=== PATIENT | female | born 1980 | race Caucasian/White ===

== ENCOUNTER 2021-10-01 15:55 | Inpatient (IN) | payer OTHER, SELFPAY ==
[2021-10-01] VITALS (9 sets, daily range): BP systolic 114–125; BP diastolic 73–89; PULSE 59–75; TEMP 36.4; BMI 26.7
--- OUTSIDE RECORDS SUMMARY | 2021-10-01 16:06 | XMS_ITS | Encounter Summary ---
:1980 Author Care Team Providers Name Role Phone Kyrie Miranda MD Primary Care Provider [phone] Reason for Visit None recorded. Assessment and Plan 1. IVF - in-vitro fertilization pregnan cy ? non-stress test Discussion Note: None recorded.Patient educational handouts: No information available. Plan of Care Reminders Provider Appointments None recorded. ? ? Lab None recorded. ? ? Referral None recorded. ? ? Procedures None recorded. ? ? Surgeries None recorded. ? ? Imaging Non-stress Test 09/27/2021 [place] Medications Name Start Date ? ? Asprin Ec Low Dose 81 mg tablet,delayed release ? Take 1 tablet every day by oral route. Extra Strength Pain Relief 500 mg capsule ? folic acid 400 mcg tablet ? Take 1 tablet every day by oral route. levothyroxine 75 mcg tablet ? Take 1 tablet every day by oral route. Vitamin 27 mg iron-0.8 mg tablet ? take 1 tablet by oral route every day Vitamin C 1,000 mg tablet ? Take 1 tablet every day by oral route. Medications Administered None recorded. Vitals None recorded. Results Lab Results None recorded. Allergies Code Code System Name Reaction Severity Onset NKDA ? ? ? Problems Name Status Onset Date Source ? Uterine Fibroids Affecting Active 03/11/2021 ? Subchorionic Hematoma Active 03/11/2021 ? IVF - In-vitro Fertilization Active ? Anxiety in Active 03/11/2021 ? Active 03/29/2021 ? Elderly Primigravida Active ?
--- OUTSIDE RECORDS SUMMARY | 2021-10-01 16:06 | XMS_ITS | Encounter Summary ---
:1980 Author Care Team Providers Name Role Phone Kyrie Miranda MD Primary Care Provider [phone] Reason for Visit OB visit Assessment and Plan 1. IVF - in-vitro fertilization pregnan cy 2. Elderly primigravida 3. Candidiasis of vulva ? Diflucan 150 mg tablet Discussion Note: None recorded.Patient educational handouts: No information available. Plan of Care Reminders Provider Appointments None recorded. ? ? Lab None recorded. ? ? Referral None recorded. ? ? Procedures None recorded. ? ? Surgeries None recorded. ? ? Imaging None recorded. ? ? Medications Name Start Date ? ? Asprin [...] oral route. Medications Administered None recorded. Vitals Height Weight BMI Blood Pressure 5 ft 9 in 188 lbs 27.8 kg/m2 122/81 mm[Hg] Results Lab Results None recorded. Allergies Code Code System Name Reaction Severity Onset NKDA ? ? ? Problems Name Status Onset Date Source ? Uterine Fibroids Affecting Active 03/11/2021 ? Subchorionic Hematoma Active 03/11/2021 ?
--- OUTSIDE RECORDS SUMMARY | 2021-10-01 16:06 | XMS_ITS ---
:1980 Author Care Team Providers Name Role Phone SYEDA LOCKETT MD Primary Care Provider [phone] Allergies Code Code System Name Reaction Severity Status Onset NKDA ? Medications Name Status Start Date Stop Date ? ? Amrix 15 mg capsule,extended release Completed ? 02/12/2016 take 1 capsule by oral route every day Ascorbic Acid with Ivanna Hips Completed ? Asprin Ec Low Dose 81 mg tablet,delayed release Active ? Not available Take 1 tablet every day by oral route. azithromycin 500 mg tablet Completed ? 03/11 budesonide 0.25 mg/2 mL suspension for Completed ? 03/11/2021 nebulization chlorpheniramine 4 mg tablet Completed ? take 1 tablet by oral route every 4 hours as needed Claritin Liqui-Gel 10 mg capsule Completed ? 04/15/2019 clomiphene citrate 50 mg tablet Completed 06/03/2019 03/11/2021 take 2 tablet by oral route days 5-9 of cycle Ed-ChlorPed 2 mg/mL oral drops Completed ? 1 04/13/2015 Estarylla 0.25 mg-35 mcg tablet Completed ? 03/11/2021 Estrace 2 mg tablet Completed ? 05/15/2021 Extra Strength Pain Relief 500 mg capsule Active ? Not available fluconazole 150 mg tablet Completed ? 2021 folic acid 400 mcg tablet Active ? Not av ailable Take 1 tablet every day by oral route. Follistim AQ 900 unit/1.08 mL subcutaneous Completed ? 03/11/2021 cartridge ibuprofen 100 mg tablet Completed ? 03/29/20 take 2 tablet by oral route 4 - 6 hours as needed with food insulin syringe U-100 with needle 1/2 mL 29 Completed ? 03/11/2021 USE DIRECTED WITH LEUPROLIDE
--- OUTSIDE RECORDS SUMMARY | 2021-10-01 16:06 | XMS_ITS | Encounter Summary ---
:1980 Author Care Team Providers Name Role Phone Kyrie Miranda MD Primary Care Provider [phone] Reason for Visit None recorded. Assessment and Plan 1. IVF - in-vitro fertilization pregnan cy ? non-stress test Discussion Note: None recorded.Patient educational handouts: No information available. Plan of Care Reminders Provider Appointments None recorded. ? ? Lab None recorded. ? ? Referral None recorded. ? ? Procedures None recorded. ? ? Surgeries None recorded. ? ? Imaging Non-stress Test 09/13/2021 [place] Medications Name Start Date ? ? Asprin [...]
--- OUTSIDE RECORDS SUMMARY | 2021-10-01 16:06 | XMS_ITS | Encounter Summary ---
:1980 Author Care Team Providers Name Role Phone Kyrie Miranda MD Primary Care Provider [phone] Reason for Visit OB visit Assessment and Plan 1. Elderly primigravida 2. Anxiety in 3. IVF - in-vitro fertilization pregnan cy 4. Uterine fibroids affecting Discussion Note: None recorded.Patient educational handouts: No [...] BMI Blood Pressure 5 ft 9 in 186 lbs 27.5 kg/m2 131/83 mm[Hg] Results Lab Results None recorded. Allergies Code Code System Name Reaction Severity Onset NKDA ? ? ? Problems Name Status Onset Date Source ? Uterine Fibroids Affecting Active 03/11/2021 ? Subchorionic Hematoma Active 03/11/2021 ?
--- OUTSIDE RECORDS SUMMARY | 2021-10-01 16:06 | XMS_ITS | Encounter Summary ---
:1980 Author Care Team Providers Name Role Phone Kyrie Miranda MD Primary Care Provider [phone] Reason for Visit None recorded. Assessment and Plan 1. Elderly primigravida 2. IVF - in-vitro fertilization pregnan cy Discussion Note: None recorded.Patient educational handouts: No [...] BMI Blood Pressure 5 ft 9 in 187 lbs 27.6 kg/m2 123/77 mm[Hg] Results Lab Results None recorded. Allergies Code Code System Name Reaction Severity Onset NKDA ? ? ? Problems Name Status Onset Date Source ? Uterine Fibroids Affecting Active 03/11/2021 ? Subchorionic Hematoma Active 03/11/2021 ? IVF - In-vitro Fertilization Active ? Anxiety in Active
--- OUTSIDE RECORDS SUMMARY | 2021-10-01 16:06 | XMS_ITS | Encounter Summary ---
:1980 Author Care Team Providers Name Role Phone Kyrie Miranda MD Primary Care Provider [phone] Reason for Visit None recorded. Assessment and Plan 1. IVF - in-vitro fertilization pregnan cy ? non-stress test Discussion Note: None recorded.Patient educational handouts: No information available. Plan of Care Reminders Provider Appointments None recorded. ? ? Lab None recorded. ? ? Referral None recorded. ? ? Procedures None recorded. ? ? Surgeries None recorded. ? ? Imaging Non-stress Test 09/04/2021 [place] Medications Name Start Date ? ? Asprin [...]
--- OUTSIDE RECORDS SUMMARY | 2021-10-01 16:06 | XMS_ITS | Encounter Summary ---
:1980 Author Care Team Providers Name Role Phone Kyrie Miranda MD Primary Care Provider [phone] Reason for Visit None recorded. Assessment and Plan 1. IVF - in-vitro fertilization pregnan cy ? US, obstetric, biophysical profile + non-stress test Discussion Note: None recorded.Patient educational handouts: No information available. Plan of Care Reminders Provider Appointments None recorded. ? ? Lab None recorded. ? ? Referral None recorded. ? ? Procedures None recorded. ? ? Surgeries None recorded. ? ? Imaging US, Obstetric, Biophysical Profile + 2 [place] Non-stress Test Medications Name Start Date ? ? Asprin [...]
--- OUTSIDE RECORDS SUMMARY | 2021-10-01 16:06 | XMS_ITS | Encounter Summary ---
:1980 Author Care Team Providers Name Role Phone Kyrie Miranda MD Primary Care Provider [phone] Reason for Visit OB visit Assessment and Plan 1. IVF - in-vitro fertilization pregnan cy 2. Elderly primigravida 3. Uterine fibroids affecting Discussion Note: None recorded.Patient [...] BMI Blood Pressure 5 ft 9 in 183 lbs 27 kg/m2 112/74 mm[Hg] Results Lab Results None recorded. Allergies Code Code System Name Reaction Severity Onset NKDA ? ? ? Problems Name Status Onset Date Source ? Uterine Fibroids Affecting Active 03/11/2021 ? Subchorionic Hematoma Active 03/11/2021 ? IVF - In-vitro Fertilization Active
--- OUTSIDE RECORDS SUMMARY | 2021-10-01 16:06 | XMS_ITS | Encounter Summary ---
:1980 Author Care Team Providers Name Role Phone Kyrie Miranda MD Primary Care Provider [phone] Reason for Visit None recorded. Assessment and [...] Imaging US, Obstetric, Biophysical Profile + 2 [place] Non-stress Test Medications Name Start Date ? [...]
--- OUTSIDE RECORDS SUMMARY | 2021-10-01 16:06 | XMS_ITS | Encounter Summary ---
:1980 Author Care Team Providers Name Role Phone Kyrie Miranda MD Primary Care Provider [phone] Reason for Visit OB visit Assessment and Plan 1. Elderly primigravida 2. Anxiety in 3. IVF - in-vitro fertilization pregnan cy Discussion [...] ft 9 in 186 lbs 27.5 kg/m2 115/77 mm[Hg] Results Lab Results None recorded. Allergies Code Code System Name Reaction Severity Onset NKDA ? ? ? Problems Name Status Onset Date Source ? Uterine Fibroids Affecting Active 03/11/2021 ? Subchorionic Hematoma Active 03/11/2021 ? IVF - In-vitro Fertilization Active
--- OUTSIDE RECORDS SUMMARY | 2021-10-01 16:06 | XMS_ITS | Encounter Summary ---
:1980 Author Care Team Providers Name Role Phone Kyrie Miranda MD Primary Care Provider [phone] Reason for Visit OB visit Assessment and Plan 1. Elderly primigravida ? TSH, serum or plasma 2. Uterine fibroids affecting 3. IVF - in-vitro fertilization pregnan cy Discussion Note: None recorded.Patient educational handouts: No information available. Plan of Care Reminders Provider Appointments None recorded. ? ? Lab TSH, Serum or Plasma 08/16/2021 [facility] (Lab) Referral None recorded. ? ? Procedures None [...] ft 9 in 186 lbs 27.5 kg/m2 122/80 mm[Hg] Results Lab Results Date Name Specimen Result Interpretation Description Value Range Status Address ? 08/16/2021 TSH, Serum ? Tsh 2.93 uIU/mL 0.30-5.33 [facility]: 25 or Plasma uIU/mL [address], [place] Allergies
--- OUTSIDE RECORDS SUMMARY | 2021-10-01 16:06 | XMS_ITS | Encounter Summary ---
:1980 Author Care Team Providers Name Role Phone Kyrie Miranda MD Primary Care Provider [phone] Reason for Visit OB visit Assessment and [...] ft 9 in 186 lbs 27.5 kg/m2 119/83 mm[Hg] Results Lab Results None recorded. Allergies Code Code System Name Reaction Severity Onset NKDA ? ? ? Problems Name Status Onset Date Source ? Uterine Fibroids Affecting Active 03/11/2021 ? Subchorionic Hematoma Active 03/11/2021 ? IVF - In-vitro Fertilization Active ? Anxiety in Active
--- OUTSIDE RECORDS SUMMARY | 2021-10-01 16:06 | XMS_ITS | Encounter Summary ---
:1980 Author Care Team Providers Name Role Phone Kyrie Miranda MD Primary Care Provider [phone] Reason for Visit OB visit OB [id number] EDC 09/28/2021 [place] 12/22/2020 Assessment and Plan Assessment Note Patient is _29__weeks . Discuss ed plan. 1. Routine care Discussion Note: None recorded.Patient educational handouts: No [...] BMI Blood Pressure 5 ft 9 in 182 lbs 26.9 kg/m2 123/79 mm[Hg] Results Lab Results None recorded. Allergies Code Code System Name Reaction Severity Onset NKDA ? ? ? Problems Name Status Onset Date Source ? Uterine Fibroids Affecting Active 03/11/2021 ? Subchorionic Hematoma Active 03/11/20
--- OUTSIDE RECORDS SUMMARY | 2021-10-01 16:06 | XMS_ITS | Encounter Summary ---
:1980 Author Care Team Providers Name Role Phone Kyrie Miranda MD Primary Care Provider [phone] Reason for Visit None recorded. Assessment and Plan 1. Elderly primigravida ? non-stress test Discussion Note: None recorded.Patient educational handouts: No information available. Plan of Care Reminders Provider Appointments None recorded. ? ? Lab None recorded. ? ? Referral None recorded. ? ? Procedures None recorded. ? ? Surgeries None recorded. ? ? Imaging Non-stress Test 08/30/2021 [place] Medications Name Start Date ? ? Asprin [...] Active 03/29/2021 ? Elderly Primigravida Active ? ?
--- OUTSIDE RECORDS SUMMARY | 2021-10-01 16:06 | XMS_ITS | Encounter Summary ---
:1980 Author Care Team Providers Name Role Phone Kyrie Miranda MD Primary Care Provider [phone] Reason for Visit None recorded. Assessment and Plan 1. Advanced maternal age ? US, obstetric, biophysical profile + non-stress test Discussion Note: None recorded.Patient educational handouts: No information available. Plan of Care Reminders Provider Appointments None recorded. ? ? Lab None recorded. ? ? Referral None recorded. ? ? Procedures None recorded. ? ? Surgeries None recorded. ? ? Imaging US, Obstetric, Biophysical Profile + 2 [place] Non-stress Test Medications Name Start Date ? [...]
--- OUTSIDE RECORDS SUMMARY | 2021-10-01 16:06 | XMS_ITS | Encounter Summary ---
:1980 Author Care Team Providers Name Role Phone Kyrie Miranda MD Primary Care Provider [phone] Reason for Visit OB visit Assessment and [...] BMI Blood Pressure 5 ft 9 in 181 lbs 26.7 kg/m2 113/73 mm[Hg] Results Lab Results None recorded. Allergies Code Code System Name Reaction Severity Onset NKDA ? ? ? Problems Name Status Onset Date Source ? Uterine Fibroids Affecting Active 03/11/2021 ? Subchorionic Hematoma Active 03/11/2021 ? IVF - In-vitro Fertilization Active
--- OUTSIDE RECORDS SUMMARY | 2021-10-01 16:07 | XMS_ITS | Encounter Summary ---
:1980 Author Care Team Providers Name Role Phone Kyrie Miranda MD Primary Care Provider [phone] Reason for Visit None recorded. Assessment and Plan 1. IVF - in-vitro fertilization pregnan cy ? US, obstetric, follow-up Discussion Note: None recorded.Patient educational handouts: No information available. Plan of Care Reminders Provider Appointments None recorded. ? ? Lab None recorded. ? ? Referral None recorded. ? ? Procedures None recorded. ? ? Surgeries None recorded. ? ? Imaging US, Obstetric, Follow-up 07/05/2021 [place] Medications Name Start Date ? ? Asprin [...] 03/11/2021 ? Active 03/29/2021 ? Elderly Primigravida Activ
[2021-10-01 16:35] LABS: Basophils Percent Auto 0.3 % (0.2-1.2); Eosinophils Absolute Auto 0.1 K/mm3 (0-0.3); Eosinophils Percent Auto 0.5 % (0-4.4); Hematocrit 35.6 % (37.0-47.0); Hemoglobin 12.1 g/dL (12.0-15.0); Immature Granulocyte Absolute 0.06 K/mm3 (0.00-0.031); Immature Granulocyte Percent A 0.6 % (0-0.5); Lymphocytes Absolute Auto 1.55 K/mm3 (0.9-3.2); Lymphocytes Percent Auto 16.4 % (18.3-44.2); Mean Corpuscular Hemoglobin 31.5 pg (26-34); Mean Corpuscular Volume 92.7 fl (80-100); Mean Platelet Volume 10.7 fl (7.4-10.4); Monocytes Absolute Auto 0.8 K/mm3 (0.1-0.6); Neutrophils Percent Auto 74.2 % (45.5-73.1); Platelet Count Result 237 k/mm3 (150-375); Red Blood Count 3.84 M/mm3 (4.2-5.4); Red Cell Distribution Width 12.7 % (11.5-14.5); White Blood Count 9.5 K/mm3 (4.5-10.0)
--- NOTE | 2021-10-01 16:48 | LDADM ---
This patient, Mere Hanson, was admitted to Labor/Delivery/Recovery 103 on 10/01/21 at 15:55. Plans for labor, pain management and were discussed with patient. Patient/family oriented to hospital policies and general routines including ID bracelet, bed and alarms, visiting hours, pain management, procedures, bathroom and other care routines, personal items, smoking policy, room service/diet and guest tray routines, infant security routines, and visiting hours. Patient/Family are encouraged to report perceived risks to care and to ask questions if they do not understand what they are told or what they should do. See OBIX for further documentation.
[2021-10-01] MEDS: DINOPROSTONE 10 MG VAG INSERT VAGINAL (17:15)
[2021-10-01 17:16] LABS: Rapid Plasma Reagin Non-Reactive (NonReactive)
--- NOTE | 2021-10-01 17:54 | WPDANESEPP ---
Anes - Eval Pre Procedure Procedure: labor epidural Date/Time: 10/01/21 17:54 Surgeon: daya Pre Op Diagnosis: iol Patient Data Age: 40 Gender: F Height: 1.78 m Weight: 84.5 kg Last Vital Signs Pulse 70 10/01/21 17:45 BP 116/80 10/01/21 17:45 O2 Del Method Room Air 10/01/21 16:47 Allergies Allergy/AdvReac Type Severity Reaction Status Date / Time No Known Allergies Allergy Verified 08/30/21 12:33 Home Medications Medication Instructions Recorded Confirmed Type albuterol sulfate 90 mcg/actuation 1 - 2 puff inhalation Q4-6H PRN 07/06/19 10/01/21 Rx aerosol inhaler shortness of breath or wheezing #18 grams ascorbic acid (vitamin C) 500 mg 500 mg PO DAILY 09/20/20 10/01/21 History capsule levothyroxine 50 mcg tablet 75 mcg PO DAILY 09/20/20 10/01/21 History prenat.vits,bailee,een-xbry-vpyvy 1 tablet PO DAILY 09/20/20 10/01/21 History aspirin 81 mg tablet,delayed 81 mg PO DAILY 08/30/21 10/01/21 History release (Kristen Low Dose Aspirin) Laboratory Tests 10/01/21 10/01/21 10/01/21 16:30 16:30 16:30 WBC 9.5 K/mm3 K/mm3 (4.5-10.0) RBC 3.84 M/mm3 L M/mm3 (4.2-5.4) Hgb 12.1 g/dL g/dL (12.0-15.0) Hct 35.6 % L % (37.0-47.0) MCV 92.7 fl fl (80-100) MCH 31.5 pg pg (26-34) MCHC 34.0 g/dl g/dl (32-36) RDW 12.7 % % (11.5-14.5) Plt Count 237 k/mm3 k/mm3 (150-375) MPV 10.7 fl H fl (7.4-10.4) Immature Gran % (Auto) 0.6 % H % (0-0.5) Neut % (Auto) 74.2 % H % (45.5-73.1) Lymph % (Auto) 16.4 % L % (18.3-44.2) Gilchrist % (Auto) 8.0 % % (2.6-8.5) Eos % (Auto) 0.5 % % (0-4.4) Baso % (Auto) 0.3 % % (0.2-1.2) Lymph # (Auto) 1.55 K/mm3 K/mm3 (0.9-3.2) Gilchrist # (Auto) 0.8 K/mm3 H K/mm3 (0.1-0.6) Eos # (Auto) 0.1 K/mm3 K/mm3 (0-0.3) Baso # (Auto) 0.0 K/mm3 K/mm3 (0.0-0.1) Abs Immat Gran (auto) 0.06 K/mm3 H K/mm3 (0.00-0.031) Absolute Neuts (auto) 7.0 K/mm3 H K/mm3 (1.3-6.7) Absolute Nucleated RBC 0.0 K/mm3 K/mm3 (0.0-0.012) Nucleated RBC % 0.0 % % (0.0-0.2) RPR Non-reactive (NonReactive) Blood Type O Positive Antibody Screen Negative Patient hx anesthesia problems: none Family hx anesthesia problems: none Results Review: All pre-operative results and documents have been reviewed as part of the pre-operative evaluation. [facility] Past Medical History Medical History (Updated 09/20/20 @ 14:10 by Chen Sauer NP) History of in vitro fertilization Miscarriage of left tubal ectopic Family History Family History Grandparent Hypertension Family history of malignant neoplasm of gastrointestinal tract Family history of lung cancer Family history of malignant neoplasm of brain Family history of malignant neoplasm of breast Family history of lymphoma Diabetes mellitus Mother Patient's mother is in good health Father Patient's father is in good health Social History Social History Smoking status: Never smoker Alcohol intake: never Substance use: never Spiritual care concerns: No Exam Day of Procedure 10/01/21 17:54
--- NOTE | 2021-10-01 22:30 | PM.IMHP ---
H&P: HPI History of Present Illness Date/Time: 10/01/21 22:30 Chief Complaint: induction of labor Narrative: Mere is a 40yo at 40.3 for IOL. complicated by anxiety, AMA< IVF , hypothyroidism, fibroids, and COVID during . Baby has been normally grown and had normal testing. GBS neg. Review of Systems Review of Systems: All systems reviewed & are unremarkable except as noted in HPI and below PMFSH Past Medical History Medical History (Updated 10/01/21 @ 22:32 by Adriana Covarrubias MD) History of in vitro fertilization Miscarriage of left tubal ectopic Family History Family History Grandparent Hypertension Family history of malignant neoplasm of gastrointestinal tract Family history of lung cancer Family history of malignant neoplasm of brain Family history of malignant neoplasm of breast Family history of lymphoma Diabetes mellitus Mother Patient's mother is in good health Father Patient's father is in good health Social History Social History Smoking status: Never smoker Alcohol intake: never Substance use: never Spiritual care concerns: No Meds Home Medications and Allergies Home Medications Medication Instructions Recorded Confirmed Type albuterol sulfate 90 mcg/actuation 1 - 2 puff inhalation Q4-6H PRN 07/06/19 10/01/21 Rx aerosol inhaler shortness of breath or wheezing #18 grams ascorbic acid (vitamin C) 500 mg 500 mg PO DAILY 09/20/20 10/01/21 History capsule levothyroxine 50 mcg tablet 75 mcg PO DAILY 09/20/20 10/01/21 History prenat.vits,bailee,non-twrz-demol 1 tablet PO DAILY 09/20/20 10/01/21 History aspirin 81 mg tablet,delayed 81 mg PO DAILY 08/30/21 10/01/21 History release (Kristen Low Dose Aspirin) Allergies Allergy/AdvReac Type Severity Reaction Status Date / Time No Known Allergies Allergy Verified 08/30/21 12:33 Vital Signs Vital Signs - 24 hr 10/01/21 16:47 10/01/21 16:55 10/01/21 17:00 Pulse Rate 65 72 Blood Pressure 119/85 123/83 Oxygen Delivery Room Air 10/01/21 17:15 10/01/21 17:30 10/01/21 17:45 Pulse Rate 63 75 70 Blood Pressure 124/75 125/89 116/80 Oxygen Delivery 10/01/21 18:00 10/01/21 18:15 10/01/21 19:00 Pulse Rate 66 63 61 Blood Pressure 114/75 121/77 118/78 Oxygen Delivery Exam Const: General: no acute distress Resp: Effort & Inspection: normal respiratory effort Auscultation: clear to auscultation bilaterally Cardio: Rate: regular rate Rhythm: regular rhythm GI: GI Palp: Yes Soft to palpation Extrem: General: normal to inspection H&P: Results Labs Labs: Short CBC 10/01/21 Range/Units 16:30 WBC 9.5 (4.5-10.0) K/mm3 Hgb 12.1 (12.0-15.0) g/dL Hct 35.6 L (37.0-47.0) % Plt Count 237 (150-375) k/mm3 Assessment and Plan Assessment and plan (1) conceived through in vitro fertilization: Code(s): O09.819 - Supervision of resulting from assisted reproductive technology, unspecified trimester Status: Acute (2) AMA (advanced maternal age) primigravida 35+: Code(s): O09.519 - Supervision of elderly primigravida, unspecified trimester Status: Acute (3) Hypothyroid: Code(s): E03.9 - Hypothyroidism, unspecified Status: Acute (4) Anxiety: Code(s): F41.9 - Anxiety disorder, unspecified Status: Acute Additional Plan Here for induction of labor- cervidil and pitocin GBS neg FHT category 1
[2021-10-02] VITALS (88 sets, daily range): BP systolic 97–142; BP diastolic 52–90; PULSE 55–118; RESP 18; TEMP 36.4–37; O2SAT 99–100
[2021-10-02] MEDS: ACETAMINOPHEN 500 MG TABLET 1000 MG PO (01:26)
[2021-10-02] MEDS: LACTATED RINGERS 1,000 ML 125 ML IV CONT ×5 (03:45→14:36)
[2021-10-02] MEDS: ONDANSETRON INJ 4 MG/2 ML VIAL IV PUSH ×2 (03:45→10:04)
[2021-10-02] MEDS: fentaNYL CITRATE INJ (*CRX) 100 MCG/2 ML VIAL 50 MCG IV PUSH ×2 (03:46→11:52)
[2021-10-02] MEDS: OXYTOCIN 30 UNITS/NS 500 ML 30 UNITS/500 ML BAG 6 UNITS IV CONT (06:30)
[2021-10-02] MEDS: LEVOTHYROXINE SODIUM 75 MCG TABLET PO (06:35)
--- NOTE | 2021-10-02 07:43 | PM.OBPNLAB ---
Pain Control Date/time seen: 10/02/21 07:43 Pain control: tolerating well Pelvic Exam Dilation (cm): 2 Effacement (%): 50 station: -3 Amniotic membrane status: Ruptured Comments: AROM thick mec Contractions Monitor mode: External Contraction pattern: Irregular Status status: Category l Assessment and Plan Assessment: induction ongoing Plan: continuous present management Comments: increase pitocin FHT category 1 peds for delivery for meconium, discussed
[2021-10-02] MEDS: OXYTOCIN 30 UNITS/NS 500 ML 30 UNITS/500 ML BAG 125 UNITS IV CONT (17:56)
--- NOTE | 2021-10-02 18:08 | PM.OBPRVD ---
OB - Delivery Note Procedure Delivery date: 10/02/21 Procedure: Events: Other (COVID, AMA, IVF ) Induction method: AROM, Per Pitocin Protocol and Per Cervidil Protocol Delivery monitor: External FHT and External Uterine Route of delivery: Laceration Description: Perineal - 2nd Degree Delivery repair: vicryl Specimen: Yes Quantitative Blood Loss (ml): 600 (due to vaginal lacerations) Anesthesia type: Epidural Disposition: Floor Narrative: With adequate expulsive efforts by the mother, the baby's head was delivered OA. The baby's anterior shoulder was delivered under the pubic symphysis without difficulty. The posterior shoulder and the rest of the baby delivered without difficulty. The was placed on the mothers chest and suctioned and stimulated. The cord was clamped and cut after 30 seconds. Mother and baby both stable. Baby Date of : 10/02/21 Time of : 17:22 Weeks of gestation at delivery: 40 Infant gender: Female Weight (pounds): 6 Weight (ounces): 8 presentation: vertex Placenta delivery description: Spontaneous Cord Vessel Description: 3 Vessels and Delayed Cord Clamping score one minute: 8 score five minutes: 8
[2021-10-02] MEDS: WITCH HAZEL 40 PADS 1 PAD TOPICAL (20:25)
--- NOTE | 2021-10-02 20:50 | PC.NURSE ---
Patient transferred to post room #282 per wheelchair from labor and delivery. Support person present. Oriented to unit, room, information board, rooming in, admission packet and security measures. Patient verbalizes understanding.
[2021-10-03] VITALS (7 sets, daily range): BP systolic 114–127; BP diastolic 64–82; PULSE 60–75; RESP 14–18; TEMP 36.3–37.2; O2SAT 100
[2021-10-03] MEDS: IBUPROFEN 600 MG TABLET PO ×4 (01:34→23:35)
[2021-10-03 04:32] LABS: Hemoglobin 10.4 g/dL (12.0-15.0)
--- NOTE | 2021-10-03 07:34 | PM.OBPNVD ---
OB - PN: Subj Subjective Date/time seen: 10/03/21 07:34 Patient comments: no complaints, pain well controlled, incisional pain, tolerating diet and flatus present OB - PN: Obj Data Labs CBC & Chem 7: 10/03/21 04:27 Labs: Laboratory Results - last 24 hr 10/03/21 04:27 Hgb 10.4 L Hct 31.0 L OB - PN A/P Plan day: 1 Plan: routine care Comments: No problems, routine care Time Spent With Patient Time: Total time spent is greater than 50% in coordination of care (as documented) at patient's floor/unit and/or counseling patient: Exam Const: General: comfortable, no acute distress and alert Resp: Effort & Inspection: normal respiratory effort Auscultation: no crackles, no rales and no rhonchi Cardio: Rate: regular rate Heart sounds: no click, no murmurs and no rubs GI: Inspection: non-distended GI Palp: No Tenderness to palpation present (GI) Auscultation: normal bowel sounds Other: Incision - CDI Extrem: General: normal to inspection, no pedal edema and no calf tenderness
[2021-10-03] MEDS: MULTIVIT/MIN/PREN/FOL AC/IRON TABLET 1 TAB PO (09:06)
[2021-10-03] MEDS: DOCUSATE SODIUM 100 MG CAPSULE PO ×2 (09:06→17:12)
[2021-10-03] MEDS: LEVOTHYROXINE SODIUM 75 MCG TABLET PO (09:08)
--- NOTE | 2021-10-03 10:53 | PC.NURSE ---
Addendum entered by Leni Marcano RN 10/03/21 11:13: late entry from earlier assessment - Breast assessment presented a small bruise at the noon position on the left breast. Discussed with parents it appears may have had a missed latch. Mother visualized the difference between the small bruise like area vs a Zhou gland. Original Note: [id number] Introductions were made, then consulted with patient to assess needs related to . Mother led the conversation with her experience feeding her so far. Mother states her sister did hand expression while there was separation from in the early moments after delivery. Mother states infant breastfed with no discomfort around 0600. Mother works well with her infant with encouragement and education. Encouraged understanding of the benefits of skin to skin (unwrapping infant and placing vertically on her chest), responsive feeding and how to watch for early feeding signs, frequency of feeding on demand about every 8-12 times in 24 hours (every 2-3 hours), milk production, duration of feeding, signs of adequate intake/output and how to record on the feeding sheet. Nipple care reviewed with optimal latch and good positioning. Reviewed good handwashing when or touching the breast/nipples to prevent infection. Resources used to facilitate learning were used with the tool/mom and baby guide. is had a large spit up, was placed vertically skin to skin. While education was reviewed infant was encouraged with massage touch, talking and position changes to wake to breastfeed. Infant is not showing feeding cues at this time. Mother is going to give the more time and attempt again in the next hour. Mother voiced understanding of responsive feedings, stimulating with skin to skin, hand expressed colostrum, touch, talking to infant to encourage if it has been 2 -3 hours since the start of the last , to call if infant does not latch or there is discomfort with . Reported to the primary RN.
--- NOTE | 2021-10-03 11:47 | WPDANLDPN2 ---
Anes-Prog Note L&D Date/Time: 10/03/21 11:47 Neuro status: Neuro function grossly intact. Vital Signs: Last Vital Signs Temp 36.6 C 10/03/21 08:30 Pulse 75 10/03/21 08:30 Resp 16 10/03/21 08:30 BP 114/72 10/03/21 08:30 Pulse Ox 100 10/03/21 08:30 O2 Del Method Room Air 10/01/21 16:47 Pain score (VAS): 0 I/O: Intake & Output 10/02/21 10/03/21 10/03/21 23:59 07:59 15:59 Intake Total 500 Output Total 20 Balance 480 Patient feedback: Patient satisfied with anesthetic care.
--- NOTE | 2021-10-03 15:27 | PC.NURSE ---
[id number] Consulted with patient to assess needs related to . Mother led conversation with her experience with feeding baby so far. Mother works well with her infant but is having difficulty getting infant latched at this time. Reviewed using skin to skin to organize and calm infant. After infant calmed down and demonstrated feeding cues RN worked with mother to latch infant. Reviewed positioning and alignment, supporting breast, off-centered (asymmetrical latch) and leading with the chin with big open wide gape. has a lower frenulum that pulls on her tongue. latched optimally to the right breast in football position. Mother denies pinchy or biting pain. Education given to mother of how to visualize suck/swallow ratios, drinking at the breast actively and to observe her nipples after detaching from the breast. Infant was able to maintain latch without discomfort to mother. Nipple care reviewed with optimal latch and good positioning. Mother voiced understanding of the education shared, that nipples should not look like someone has pinched them or like a new tube of lipstick after , calling for assistance if the does not latch or if there is discomfort with . Mother states there is tenderness but no pain . RN encouraged mother to relax after was effectively . Reported to the primary RN.
[2021-10-04] MEDS: LEVOTHYROXINE SODIUM 75 MCG TABLET PO (05:48)
--- NOTE | 2021-10-04 06:49 | P.PNOB_ITS ---
OB - PN: Subj Subjective Date/time seen: 10/04/21 06:49 Patient comments: no complaints and pain well controlled baby status: doing well and nursing well [place] feeding status: exclusively breast feeding OB - PN: Obj Data Labs CBC & Chem 7: 10/03/21 04:27 OB - PN A/P Plan day: 2 Plan: routine care and discharge home Time Spent With Patient Time: Total time spent is greater than 50% in coordination of care (as documented) at patient's floor/unit and/or counseling patient: Time with patient: less than 15 minutes Exam Narrative: NAD abdomen soft, nontender, fundus firm below the umbilicus Extremities nontender, 1+ edema
--- NOTE | 2021-10-04 06:52 | PM.OBDSVD ---
DS: Admitting Diagnosis Discharge Date 10/04/21 Admitting Diagnosis IUP at 40w, IVF, COVID in , AMA DS: Discharge Diagnosis Discharge Diagnosis (1) , delivered: Code(s): O80 - Encounter for full-term uncomplicated delivery Status: Acute OB - DS: Summary Hospital Course Hospital Course: Pt was admitted for IOL at 40.3. She had an uncomplicated vaginal delivery and course. OB Procedures : NST and Ultrasound OB Procedures Intrapartum: Spontaneous Vag Delivery OB Procedures: : None Peripartum Data Infant Delivery Method: Natural Vaginal Laceration Description: Perineal - 2nd Degree complications: none Time Spent with Patient Time attestation: Total time spent providing and/or coordinating discharge services: Exam Narrative: NAD abdomen soft, appropriately tender Ext non tender, 1+ edema DS: Data Data Completed and Pending Pending studies at discharge: Pending at discharge 10/02/21 18:43 Surgical [PTH] Routine Discharge Plan Discharge Attending physician on discharge: Adriana Covarrubias Discharging Clinician: Adriana Covarrubias Anticipated Discharge Date/Time: 10/04/21 06:51 Patient Disposition: Home, Self-Care Activity: pelvic rest Diet: regular Discharge Instructions: ibuprofen 600mg every 6 hours as needed Patient Instructions: Antibiotic Form Stand Alone Forms: General Discharge Information Follow-up/Referrals: Adriana Covarrubias MD [Physician] - 4 Weeks Discharge Medications: Continued levothyroxine 50 mcg tablet 75 mcg PO DAILY prenat.vits,bailee,[id number] Tablet 1 tablet PO DAILY ascorbic acid (vitamin C) 500 mg capsule 500 mg PO DAILY albuterol sulfate 90 mcg/actuation HFA aerosol inhaler 1 - 2 puff INHALATION Q4-6H PRN (Reason: shortness of breath or wheezing) Qty: 18 1RF Discontinued aspirin [Kristen Low Dose Aspirin] 81 mg Tablet,Delayed Release (Dr/Ec) 81 mg PO DAILY Date of admission: 10/01/21 15:55 Primary Care Provider: Kyrie Miranda Admitting Provider: Adriana Covarrubias Attending physician on admission: Adriana Covarrubias Condition: Stable
--- NOTE | 2021-10-04 08:00 | PC.NURSE ---
PT introductions made and plan of care discussed per post , pain management, breast feeding, daily care activities and pending discharge to home. PT and spouse both recipients of such instructions. PT received instructions per one to one discussion, mom baby care guide and demonstrations this shift. No barriers to learning identified at this time. PT verbalized understanding of such care.
[2021-10-04 08:05] VITALS: BP 124/80; PULSE 58; RESP 16; TEMP 36.3; O2SAT 100
[2021-10-04] MEDS: DOCUSATE SODIUM 100 MG CAPSULE PO (09:34)
[2021-10-04] MEDS: ACETAMINOPHEN 325 MG TABLET 650 MG PO (09:34)
[2021-10-04] MEDS: MULTIVIT/MIN/PREN/FOL AC/IRON TABLET 1 TAB PO (09:34)
[2021-10-04] MEDS: IBUPROFEN 600 MG TABLET PO (09:35)
[2021-10-04 09:45] VITALS: PULSE 58; RESP 16; O2SAT 100
--- NOTE | 2021-10-04 11:00 | PC.NURSE ---
Patient was given the opportunity to view the discharge video Mother & Baby Care, The First Two Weeks and to ask questions. Patient declined viewing the video and has been given the mother/baby guide for home reference.
--- NOTE | 2021-10-04 12:15 | PC.NURSE ---
PT received discharge instructions per protocol and verbalized understanding of such care.
--- NOTE | 2021-10-04 13:48 | PC.NURSE ---
Pt discharged to home ambulatory accompanied by spouse and to waiting car. Follow up appts confirmed
--- NOTE | 2021-10-04 14:28 | PC.NURSE ---
[id number] Infant is in the nursery for Hemanth Smith assessment. Mother voiced understanding of calling for assistance and assessment of latching infant. - Consulted with patient to assess needs related to . Reviewed positioning and alignment, supporting breast, off-centered (asymmetrical latch) and leading with the chin with big open wide gape. latched optimally to the right breast in cross cradle position. Education given to mother of how to visualize suck/swallow ratios and drinking at the breast. was able to maintain latch without discomfort to mother. Nipple care reviewed with optimal latch and good positioning. Mother is prepared to breastfeed her at home and has great community resources in place with her sister. Mother is feeding appropriately for growth of infant and understands stimulating to eat if needed. Infant has had appropriate feedings in the last 24 hours meets the outcomes for weight, output and jaundice at this time. Mother states she is confident to continue effectively her infant at home or when to call for assistance and denies any additional assistance or education at this time. Reinforced understanding of milk production, transition of milk, signs of adequate intake, prevention/relief of engorgement, responsive after visualizing feeding cues, the different methods of stimulating to breastfeed 2-3 hours after the start of the last feeding, community resources, medication information reviewed per [employer] and when to call a provider using the resource of the mom and baby guide/[facility] website. Mother voiced understanding of the education shared. Reported to the primary RN.
[2021-10-05 11:15] VITALS: BP 124/75; PULSE 59; RESP 20; TEMP 36.8; O2SAT 99
== END 2021-10-04 13:48 | disposition home or self-care (01) | DRG 807 ==
LOC: ANHLDR 16:04 → ANHOB2 10-02 21:25
PROVIDERS: Admitting Provider Obstetrics & Gynecology; PCP Internal Medicine; Visit Provider Obstetrics & Gynecology
DX: O34.13 Maternal care for benign tumor of corpus uteri, third trimester (principal); Z37.0 Single live birth; Z3A.40 40 weeks gestation of pregnancy; D25.9 Leiomyoma of uterus, unspecified; O70.1 Second degree perineal laceration during delivery; O36.8330 Maternal care for abnormalities of the fetal heart rate or rhythm, third trimester, not applicable or unspecified; O77.0 Labor and delivery complicated by meconium in amniotic fluid; O99.344 Other mental disorders complicating childbirth; F41.9 Anxiety disorder, unspecified; Z86.16 Personal history of COVID-19; O99.284 Endocrine, nutritional and metabolic diseases complicating childbirth; E03.9 Hypothyroidism, unspecified
CPT/HCPCS: 36415; 85014; 85018; 85025; 86592; 86850; 86900; 86901; 88307; A9270; J2405; J2590; J2795; J3010; J7120

== ENCOUNTER 2022-11-07 08:31 | Emergency (ER) | payer OTHER, SELFPAY ==
[2022-11-07 08:44] VITALS: BP 117/76; PULSE 60; RESP 16; TEMP 36.4; O2SAT 99
--- NOTE | 2022-11-07 09:03 | ED.URI ---
HPI - URI/Sore Throat General Chief Complaint: Upper Respiratory Infection Stated Complaint: Sinus Time Seen by Provider: 11/07/22 09:03 Source: patient Mode of arrival: ambulatory Limitations: no limitations History of Present Illness HPI Narrative: 41-year-old female presents with complaint of nasal congestion, sinus pressure, postnasal drainage, sore throat, cough, headaches, fatigue and body aches for 7 days. Afebrile. Taking Zyrtec, Delsym,, Flonase, Sudafed to treat her symptoms with no relief. Patient is currently . reports that ears feels full, pressure but not painful. All systems reviewed and negative except as noted above. Related Data Home Medications Medication Instructions Recorded Confirmed Daily 1 tab-cap PO DIRECTED 11/07/22 11/07/22 Lactobacillus 1 cap PO DAILY 11/07/22 11/07/22 acidophilus-Lactbacillus bifidus 1 billion cell capsule albuterol sulfate 90 mcg/actuation 2 puff inhalation DIRECTED 11/07/22 11/07/22 aerosol inhaler fluticasone propionate 50 2 spray intranasal DAILY 11/07/22 11/07/22 mcg/actuation nasal spray,suspension levothyroxine 75 mcg tablet 75 mcg PO DAILY 11/07/22 11/07/22 Allergies Allergy/AdvReac Type Severity Reaction Status Date / Time No Known Allergies Allergy Verified 11/07/22 08:53 Review of Systems Review of Systems: CONSTITUTIONAL: Denies fever, chills, or sweats. reports fatigue. EYES: Denies visual changes, redness, or discharge. ENT: Reports rhinorrhea, congestion, sore throat, bilateral otalgia, sinus pressure. CARDIOVASCULAR: Denies chest pain, palpitations, or edema. RESPIRATORY: reports cough. Denies dyspnea. GASTROINTESTINAL: Denies abdominal pain, nausea, vomiting, or diarrhea. GENITOURINARY: Denies dysuria or hematuria. SKIN: Denies rash or itching. MUSCULOSKELETAL: Denies back pain, joint pain, or myalgia. NEUROLOGIC: Denies headache, numbness, or weakness. PSYCHIATRIC: Denies anxiety or depression. All other systems reviewed are negative, except as documented in HPI. [facility] Past Medical History Medical History History of in vitro fertilization Miscarriage of left tubal ectopic Family History Family History Grandparent Hypertension Family history of malignant neoplasm of gastrointestinal tract Family history of lung cancer Family history of malignant neoplasm of brain Family history of malignant neoplasm of breast Family history of lymphoma Diabetes mellitus Mother Patient's mother is in good health Father Patient's father is in good health Social History Social History (Updated 07/10/22 @ 07:39 by Chery Cristobal [facility]) Smoking status: Never smoker Alcohol intake: never Substance use: never Lack of Transportation: No Lack of Food: Never True Current Housing: I Have Housing Concerned About Future Housing: No Difficulty Paying Gas/Electric Bills: No Difficulty Paying for Meds: No Currently Unemployed: No Education: Master's Degree or Higher Difficulty w/ Childcare or Family Care: No Spiritual care concerns: No Comments At time of signature, agree with nursing past medical, surgical, social and family history. There is no relevant family history pertinent to the presenting complaint. Exam Narrative: GENERAL: This is a well-nourished, well-developed patient, in no apparent distress. HEAD: normocephalic, atraumatic. EYES: PERRL. Sclera clear/white. Vision is grossly intact. EARS: External ears normal, auditory canals clear and without drainage, Fluid bilateral TMs without erythema or perforation. NOSE: External nose normal with Purulence nasal drainage with erythema and swelling. Bilateral maxillary sinus tenderness. THROAT: Mucous membranes moist, Erythema with postnasal drainage. No swelling or exudates. NECK: Neck s
== END 2022-11-07 09:25 | disposition home or self-care (01) ==
PROVIDERS: Emergency Provider Nurse Practitioner Family; PCP Internal Medicine
DX: J01.90 Acute sinusitis, unspecified (principal)
CPT/HCPCS: 99213; G0463

== ENCOUNTER 2023-11-02 | Inpatient (IN) | payer OTHER, SELFPAY ==
[2023-11-02] VITALS (58 sets, daily range): BP systolic 93–131; BP diastolic 47–99; PULSE 54–159; RESP 16–18; TEMP 36.4–37.3; O2SAT 79–100; BMI 28.0
[2023-11-02 00:27] LABS: Basophils Percent Auto 0.3 % (0.2-1.2); Eosinophils Absolute Auto 0.1 K/mm3 (0-0.3); Eosinophils Percent Auto 0.7 % (0-4.4); Hematocrit 37.4 % (37.0-47.0); Hemoglobin 12.9 g/dL (12.0-15.0); Immature Granulocyte Absolute 0.09 K/mm3 (0.00-0.031); Immature Granulocyte Percent A 0.8 % (0-0.5); Lymphocytes Absolute Auto 2.48 K/mm3 (0.9-3.2); Lymphocytes Percent Auto 22.4 % (18.3-44.2); Mean Corpuscular HGB Conc 34.5 g/dl (32-36); Mean Corpuscular Volume 92.8 fl (80-100); Mean Platelet Volume 10.4 fl (7.4-10.4); Monocytes Absolute Auto 0.8 K/mm3 (0.1-0.6); Monocytes Percent Auto 7.4 % (2.6-8.5); Neutrophils Absolute Auto 7.6 K/mm3 (1.3-6.7); Neutrophils Percent Auto 68.4 % (45.5-73.1); Platelet Count Result 236 k/mm3 (150-375); Red Blood Count 4.03 M/mm3 (4.2-5.4); Red Cell Distribution Width 12.5 % (11.5-14.5); White Blood Count 11.1 K/mm3 (4.5-10.0)
[2023-11-02 01:17] LABS: HIV 1/2 Ab P24 Ag Result Negative (Negative)
[2023-11-02] MEDS: miSOPROStol 25 MCG TABLET 50 MCG BUCCAL ×2 (01:30→05:40)
[2023-11-02] MEDS: ONDANSETRON INJ 4 MG/2 ML VIAL IV PUSH (05:42)
[2023-11-02] MEDS: LACTATED RINGERS 1,000 ML 125 ML IV CONT ×2 (06:35→09:05)
[2023-11-02] MEDS: fentaNYL CITRATE INJ (*CRX) 100 MCG/2 ML VIAL 50 MCG IV PUSH (08:46)
--- NOTE | 2023-11-02 09:04 | WPDANESEPP ---
Anes - Eval Pre Procedure Procedure: Labor epidural Date/Time: 11/02/23 09:04 Surgeon: Sherrill Preop Diagnosis: pain during labor Pre Op Diagnosis: IOL Patient Data Age: 42 Gender: F Height: 1.75 m Weight: 86 kg Last Vital Signs Temp 36.4 C L 11/02/23 05:30 Pulse 62 11/02/23 06:30 Resp 18 11/02/23 04:57 BP 108/66 11/02/23 06:30 Pulse Ox 96 11/02/23 09:00 O2 Del Method Room Air 11/02/23 04:57 Allergies Allergy/AdvReac Type Severity Reaction Status Date / Time No Known Allergies Allergy Verified 10/07/23 12:21 Home Medications Medication Instructions Recorded Confirmed Type Daily 1 tab-cap PO DIRECTED 11/07/22 10/07/23 History Lactobacillus 1 cap PO DAILY 11/07/22 10/07/23 History acidophilus-Lactbacillus bifidus 1 billion cell capsule albuterol sulfate 90 mcg/actuation 2 puff inhalation DIRECTED 11/07/22 10/07/23 History aerosol inhaler fluticasone propionate 50 2 spray intranasal DAILY 11/07/22 10/07/23 History mcg/actuation nasal spray,suspension aspirin 81 mg tablet,delayed 81 mg PO DAILY 09/17/23 10/07/23 History release (Adult Low Dose Aspirin) levothyroxine 75 mcg tablet See Rx Instructions .Route 09/17/23 10/07/23 Rx .COMPLEX #90 tabs Laboratory Tests 11/02/23 00:20 WBC 11.1 H K/mm3 (4.5-10.0) RBC 4.03 L M/mm3 (4.2-5.4) Hgb 12.9 g/dL (12.0-15.0) Hct 37.4 % (37.0-47.0) MCV 92.8 fl (80-100) MCH 32.0 pg (26-34) MCHC 34.5 g/dl (32-36) RDW 12.5 % (11.5-14.5) Plt Count 236 k/mm3 (150-375) MPV 10.4 fl (7.4-10.4) Immature Gran % (Auto) 0.8 H % (0-0.5) Neut % (Auto) 68.4 % (45.5-73.1) Lymph % (Auto) 22.4 % (18.3-44.2) [place] % (Auto) 7.4 % (2.6-8.5) Eos % (Auto) 0.7 % (0-4.4) Baso % (Auto) 0.3 % (0.2-1.2) Lymph # (Auto) 2.48 K/mm3 (0.9-3.2) [place] # (Auto) 0.8 H K/mm3 (0.1-0.6) Eos # (Auto) 0.1 K/mm3 (0-0.3) Baso # (Auto) 0.0 K/mm3 (0.0-0.1) Abs Immat Gran (auto) 0.09 H K/mm3 (0.00-0.031) Absolute Neuts (auto) 7.6 H K/mm3 (1.3-6.7) Absolute Nucleated RBC 0.000 K/mm3 (0.0-0.012) Nucleated RBC % 0.0 % (0.0-0.2) RPR Pending HIV 1&2 Ab/P24 Ag 4thGn Negative (Negative) Blood Type O Positive Antibody Screen Negative Patient hx anesthesia problems: none Family hx anesthesia problems: none Results Review: All pre-operative results and documents have been reviewed as part of the pre-operative evaluation. FORMERLY [facility], [facility] Past Medical History Medical History History of in vitro fertilization Miscarriage of left tubal ectopic Family History Family History Grandparent Hypertension Family history of malignant neoplasm of gastrointestinal tract Family history of lung cancer Family history of malignant neoplasm of brain Family history of malignant neoplasm of breast Family history of lymphoma Diabetes mellitus Mother Patient's mother is in good health Father Patient's father is in good health Social History Social History Smoking status: Never smoker Alcohol intake: never Substance use: never Do You Feel Safe in your Home?: Yes Lack of Transportation: No Lack of Food: Never True Current Housing: I Have Housing Concerned About Future Housing: No Difficulty Paying Gas/Electric Bills: No Difficulty Paying for Meds: No Currently Unemployed: No Education: Master's Degree or Higher Difficulty w/ Childcare or Family Care: No Spiritual care concerns: No Exam Day of Procedure 11/02/23 09:04 Patient weight: normal Heart: regular rate and rhythm Lungs: normal air movement Airway: Mallampati scale class II Neurological: alert and oriented
--- NOTE | 2023-11-02 09:19 | WPDOBADMIT ---
Obstetrics - Admit Note Admission Note: record reviewed. No pertinent additions to the history and/or any subsequent changes in the physical findings that are not consistent with the expected course of the were found. Additions to the history and/or subsequent changes in the physical findings follow. Admit for IOL, SGA, AMA, SVE /-2 AROM moderate amount of clear, odorless fluid, anticipate vaginal delivery
[2023-11-02] MEDS: OXYTOCIN 30 UNITS/NS 500 ML 30 UNITS/500 ML BAG 999 UNITS IV CONT (10:03)
--- NOTE | 2023-11-02 10:11 | PM.OBPRVD ---
OB - Vaginal Delivery Note Procedure Delivery date: 11/02/23 Events: Intrauterine Growth Restriction (IUGR) Induction method: AROM and Per Misoprostol Protocol Delivery monitor: External FHT and External Uterine Route of delivery: Episiotomy description: None Laceration Description: Superficial Delivery repair: vicryl (1 stitch) Specimen: No Quantitative Blood Loss (ml): 50 Anesthesia type: Epidural Disposition: Floor Complications: No immediate complications Baby Date of : 11/02/23 Time of : 09:58 Weeks of gestation at delivery: 39 Infant gender: Female presentation: vertex position: Left Occiput Anterior Placenta delivery description: Spontaneous Cord Vessel Description: 3 Vessels, Nuchal Cord (x1), Loose and Delayed Cord Clamping score one minute: 8 score five minutes: 8 Narrative: mother and baby skin to skin in stable condition
[2023-11-02] MEDS: OXYTOCIN 30 UNITS/NS 500 ML 30 UNITS/500 ML BAG 125 UNITS IV CONT (10:31)
[2023-11-02 11:25] LABS: Rapid Plasma Reagin Non-Reactive (NonReactive)
[2023-11-02] MEDS: IBUPROFEN 600 MG TABLET PO ×2 (14:02→20:27)
--- NOTE | 2023-11-02 16:51 | OBPPTRN ---
1324 Patient transferred to post room #282 via W/C. Support person present. Oriented to unit, room, information board, rooming in, admission packet and security measures. Patient verbalizes understanding.
[2023-11-02] MEDS: CALCIUM CARBONATE (TUMS) 500 MG (200 MG ELEMENTAL) PO (21:08)
[2023-11-03] MEDS: ACETAMINOPHEN 325 MG TABLET 650 MG PO ×2 (01:33→10:20)
[2023-11-03] MEDS: IBUPROFEN 600 MG TABLET PO (04:18)
[2023-11-03 04:49] VITALS: BP 112/64; PULSE 62; RESP 18; TEMP 36.6; O2SAT 100
[2023-11-03 05:37] LABS: Hematocrit 36.7 % (37.0-47.0); Hemoglobin 12.3 g/dL (12.0-15.0)
[2023-11-03] MEDS: LEVOTHYROXINE SODIUM 75 MCG TABLET BY MOUTH (06:25)
[2023-11-03 07:10] VITALS: BP 109/63; PULSE 63; RESP 16; TEMP 36.5; O2SAT 100
--- NOTE | 2023-11-03 09:15 | PC.NURSE ---
Mother verbalizes she is able to independently latch with appropriate positioning and alignment. She denies any nipple discomfort and is responsively . She does feel that is latching shallow and has been sleepy. is currently meeting outcomes for weight, output, jaundice, blood sugar and feeding frequencies of 8-12 times in 24 hours. Mother agrees to call out at the next feeding for a latch check. Mother is encouraged to call for assistance if her doesn?t latch, pain with latching, questions or concerns. Mother voiced understanding of information shared along with the mom/baby guide for an additional resource. Reported to the Primary RN.
--- NOTE | 2023-11-03 09:40 | PM.OBPNVD ---
OB - PN: Subj Subjective Date/time seen: 11/03/23 09:40 Interval history: PPD#1 Doing well, pain well controlled Voiding without issue , working on latching ready for discharge home today OB - PN: Obj Data Labs 11/03/23 04:24 Labs: Laboratory Results - last 24 hr 11/02/23 11/03/23 00:20 04:24 Hgb 12.3 Hct 36.7 L RPR Non-reactive OB - PN A/P Plan day: 1 Plan: routine care, discharge home and follow up 6 weeks Time Spent With Patient Time: Total time spent is greater than 50% in coordination of care (as documented) at patient's floor/unit and/or counseling patient: Review of Systems Review of Systems: All systems reviewed & are unremarkable except as noted in HPI and below Exam Const: General: comfortable and no acute distress Orientation/consciousness: patient oriented x3 Resp: Effort & Inspection: normal respiratory effort
--- NOTE | 2023-11-03 09:41 | P.DS_ITS ---
DS: Admitting Diagnosis Discharge Date 11/03/23 Admitting Diagnosis medical induction of labor, growth restriction OB - DS: Summary OB Procedures : None OB Procedures Intrapartum: Spontaneous Vag Delivery OB Procedures: : None Peripartum Data Laceration Description: Superficial Episiotomy description: None Time Spent with Patient Time attestation: Total time spent providing and/or coordinating discharge services: DS: Data Data Completed and Pending Labs on day of discharge: Labs from last 24 hours 11/03/23 11/02/23 04:24 00:20 Hgb 12.3 Hct 36.7 L RPR Non-reactive Discharge Plan Discharge Attending physician on discharge: Jimy Dowling Discharging Clinician: Jimy Dowling Patient Disposition: Home, Self-Care Activity: may shower, as tolerated and pelvic rest Diet: as tolerated Patient Instructions: Antibiotic Form Stand Alone Forms: General Discharge Information Follow-up/Referrals: Torrie Mccartney, CNM [Certified Nurse Restoration Technician] - 5 Weeks Discharge Medications: New ibuprofen 600 mg Tablet 600 mg PO Q6H PRN (Reason: Cramping) Qty: 30 0RF docusate sodium 100 mg tablet 100 mg PO BID Qty: 60 0RF Continued albuterol sulfate 90 mcg/actuation HFA aerosol inhaler 2 puff INHALATION DIRECTED fluticasone propionate [Flonase] 50 mcg/actuation [place],Suspension 2 spray INTRANASAL DAILY Rx Instructions: administer into each nostril Lactobacillus acidoph-L. bifid 1 billion cell Capsule 1 cap PO DAILY Daily 1 tab-cap PO DIRECTED levothyroxine 75 mcg tablet See Rx Instructions .ROUTE .COMPLEX Qty: 90 3RF Dose Instruction: Take one (1) tablet by mouth every day Rx Instructions: Take one (1) tablet by mouth every day Discontinued aspirin [Adult Low Dose Aspirin] 81 mg tablet,delayed release (DR/EC) 81 mg PO DAILY Date of admission: 11/02/23 00:00 Primary Care Provider: Kyrie Miranda Admitting Provider: Olivier Newberry Attending physician on admission: Torrie Mccartney Condition: Stable
[2023-11-03] MEDS: MULTIVIT/MIN/PREN/FOL AC/IRON TABLET 1 TAB PO (10:21)
--- NOTE | 2023-11-03 11:30 | PC.NURSE ---
Consulted with patient to assess needs related to . Discussed with mother her successes, concerns and any questions she has. She shared that she breastfed her 4 year old until a few weeks ago. Her nipples have some tenderness but are not painful. We reviewed working with the , supporting breast, protecting her nipples with an optimal deep latch, good positioning. Encouraged understanding the benefits of responding to feeding cues, frequencies of feeding 8-12 times in 24 hours (approximately 2-3 hours), duration of feedings, milk production, intake/output feeding sheet and signs of adequate intake encouraging swallowing at the breast. Reviewed positioning and alignment, supporting breast, off-centered (asymmetrical latch) and leading with the chin with big, open, wide gape. Infant latched optimally to the [left] breast in [cradle] position. Education given to the mother of how to visualize the suckling (with good rocking jaw motion) swallows (dropping of the lower jaw) and how to listen for drinking at the breast (the ka sound). The infant was [able] to maintain latch without discomfort to mother. Nipple care reviewed with optimal latch, good positioning and using clean hands when touching her breast. Resources used to facilitate learning were used from the [mom and baby guide and outpatient aresources]. Mother voiced understanding of the education shared, to call for assistance if the does not latch or if there is discomfort with . Reported to the Primary RN.
--- NOTE | 2023-11-03 14:54 | PC.NURSE ---
1100 Patient viewed the discharge video Mother & Baby Care, The First Two Weeks . Patient was given the opportunity and encouraged to ask questions. Patient verbalized understanding of information shared and has been given the mother/baby guide for home reference.
[2023-11-04 14:57] VITALS: BP 112/66; PULSE 61; RESP 18; TEMP 36.9; O2SAT 100
== END 2023-11-03 12:38 | disposition home or self-care (01) | DRG 807 ==
LOC: ANHOB2 11-03 11:11 → ANHLDR 11-04 07:32 → ANHOB2 11-04 07:32
PROVIDERS: Advanced Practice Midwife; Admitting Provider Obstetrics & Gynecology; PCP Internal Medicine; Visit Provider Obstetrics & Gynecology
DX: O70.0 First degree perineal laceration during delivery (principal); Z37.0 Single live birth; O36.5930 Maternal care for other known or suspected poor fetal growth, third trimester, not applicable or unspecified; O69.81X0 Labor and delivery complicated by cord around neck, without compression, not applicable or unspecified; Z3A.39 39 weeks gestation of pregnancy
CPT/HCPCS: 36415; 85014; 85018; 85025; 86592; 86703; 86850; 86900; 86901; A9270; G0432; J2405; J2590; J2795; J3010; J7120

== ENCOUNTER 2023-12-16 10:55 | Emergency (ER) | payer OTHER, SELFPAY ==
--- NOTE | ~2023-12-16 | XR_ITS ---
PA, oblique, and lateral views of the right index finger Clinical history: Injury FINDINGS: No acute fracture or dislocation seen. Joint spaces are intact. Soft tissues are unremarkab le. IMPRESSION: Unremarkable exam. Reviewed, dictated and finalized at location . IMPRESSION: Unremarkable exam.
[2023-12-16 10:57] VITALS: BP 128/77; PULSE 57; RESP 19; TEMP 36.9; O2SAT 100
--- NOTE | 2023-12-16 11:03 | ED.UPPEXIN ---
HPI - Extremity Injury (Upper) General Chief Complaint: Extremity Injury, Upper Stated Complaint: Left Hand Pain Time Seen by Provider: 12/16/23 11:04 Source: patient, RN notes reviewed and old records reviewed Mode of arrival: ambulatory Limitations: no limitations History of Present Illness HPI narrative: Patient presents with complaints of pain and bruising to the tip of the right index finger. She got finger caught in a door about 2 hours prior to arrival. She has taken ibuprofen with some relief. She is concerned about the pressure underneath the nail. She denies other injury and trauma. Voices no other concerns or complaints at this time. Related Data Home Medications Medication Instructions Recorded Confirmed Daily 1 tab-cap PO DIRECTED 11/07/22 12/16/23 Lactobacillus 1 cap PO DAILY 11/07/22 12/16/23 acidophilus-Lactbacillus bifidus 1 billion cell capsule albuterol sulfate 90 mcg/actuation 2 puff inhalation DIRECTED 11/07/22 12/16/23 aerosol inhaler Allergies Allergy/AdvReac Type Severity Reaction Status Date / Time No Known Allergies Allergy Verified 12/16/23 10:58 Review of Systems Review of Systems: All systems reviewed & are unremarkable except as noted in HPI and below Constitutional: Constitutional: Reports no additional constitutional complaints ENT: Reports system reviewed and no additional complaints, except as documented Cardiovascular: Cardiovascular: Reports no additional cardiovascular complaints Respiratory: Respiratory: Reports no additional respiratory complaints Gastrointestinal: Gastrointestinal: Reports no additional gastrointestinal complaints [facility] Past Medical History Medical History History of in vitro fertilization Miscarriage of left tubal ectopic Family History Family History Grandparent Hypertension Family history of malignant neoplasm of gastrointestinal tract Family history of lung cancer Family history of malignant neoplasm of brain Family history of malignant neoplasm of breast Family history of lymphoma Diabetes mellitus Mother Patient's mother is in good health Father Patient's father is in good health Social History Social History Smoking status: Never smoker Alcohol intake: never Substance use: never Do You Feel Safe in your Home?: Yes Lack of Transportation: No Lack of Food: Never True Current Housing: I Have Housing Concerned About Future Housing: No Difficulty Paying Gas/Electric Bills: No Difficulty Paying for Meds: No Currently Unemployed: No Education: Master's Degree or Higher Difficulty w/ Childcare or Family Care: No Spiritual care concerns: No Comments At the time of my signature, I reviewed and agree with the nursing past medical, surgical, social, and family history. There is no relevant family history pertinent to the patient complaint. Exam Const: General: cooperative, no acute distress, alert and awake Orientation/consciousness: oriented to person, oriented to place and oriented to time HENMT: Head: normal to inspection Resp: Effort & Inspection: normal respiratory effort and able to speak in complete sentences Auscultation: clear to auscultation bilaterally, no crackles, no rales, no rhonchi and no wheezes Cardio: Palpation: normal PMI Rate: regular rate Rhythm: regular rhythm Heart sounds: S1 normal heart sound present and S2 normal heart sound present Skin: Nails: other (Right index finger subungual hematoma) Neuro: General: oriented to person, oriented to place and oriented to time Cranial nerves: Yes CN's II-XII intact bilaterally Extrem: Right upper extremity: Extremity exam: right hand normal capillary refill and tenderness of the 2nd digit at the distal phalanx and at the denilson
== END 2023-12-16 11:48 | disposition home or self-care (01) ==
LOC: EXPCOLL 10:57
PROVIDERS: Emergency Provider Nurse Practitioner Family; PCP Internal Medicine
DX: S60.121A Contusion of right index finger with damage to nail, initial encounter (principal); V48.3XXA Unspecified car occupant injured in noncollision transport accident in nontraffic accident, initial encounter
CPT/HCPCS: 11740; 73140; 99213; G0463

== ENCOUNTER 2024-07-07 13:23 | Emergency (ER) | payer OTHER, SELFPAY ==
[2024-07-07 13:35] VITALS: BP 112/71; PULSE 68; RESP 16; TEMP 36.6; O2SAT 100
--- NOTE | 2024-07-07 13:51 | ED.EAR ---
HPI - Ear Problem General Chief complaint: Ear Stated complaint: Right Ear Irritation Time Seen by Provider: 07/07/24 13:52 Source: patient, RN notes reviewed and old records reviewed Mode of arrival: ambulatory Limitations: no limitations History of Present Illness HPI Narrative: 43-year-old female presents to the [facility] with right ear discomfort for the last 3 months. Patient reports that she has tried multiple [id number]-[id number] products to include Astepro, Flonase, Sudafed, loratadine Related Data Home Medications ?Medication ?Instructions ?Recorded ?Confirmed ?Last Taken ?Type Lactobacillus 1 cap PO DAILY 11/07/22 07/07/24 1 Day Ago History acidophilus-Lactbacillus bifidus 1 ~10/06/23 billion cell capsule albuterol sulfate 90 mcg/actuation 2 puff inhalation DIRECTED 11/07/22 07/07/24 Unknown History aerosol inhaler Allergies Allergy/AdvReac Type Severity Reaction Status Date / Time No Known Allergies Allergy Verified 07/07/24 13:41 Review of Systems Review of Systems: All systems reviewed & are unremarkable except as noted in HPI and below Constitutional: Constitutional: Reports no additional constitutional complaints ENT: Reports as per HPI Cardiovascular: Cardiovascular: Reports no additional cardiovascular complaints, Denies chest pain and Denies dyspnea Respiratory: Respiratory: Reports no additional respiratory complaints, Denies chest congestion, Denies cough and Denies dyspnea Musculoskeletal: Musculoskeletal: Reports no additional musculoskeletal complaints Integumentary/Breasts: Skin/Breast: Reports system reviewed and no additional complaints, except as docu PMF[facility] Past Medical History Medical History Miscarriage of left tubal ectopic History of in vitro fertilization Family History Family History Grandparent Hypertension Family history of malignant neoplasm of gastrointestinal tract Family history of lung cancer Family history of malignant neoplasm of brain Family history of malignant neoplasm of breast Family history of lymphoma Diabetes mellitus Mother Patient's mother is in good health Father Patient's father is in good health Social History Social History Smoking status: Never smoker Alcohol intake: never Substance use: never Do You Feel Safe in your Home?: Yes Lack of Transportation: No Lack of Food: Never True Current Housing: I Have Housing Concerned About Future Housing: No Difficulty Paying Gas/Electric Bills: No Difficulty Paying for Meds: No Currently Unemployed: No Education: Master's Degree or Higher Difficulty w/ Childcare or Family Care: No Spiritual care concerns: No Comments At the time of my signature, I reviewed and agree with the nursing past medical, surgical, social, and family history. There is no relevant family history pertinent to the patient complaint. Exam Const: General: cooperative, healthy appearing, comfortable, no acute distress, well developed, alert and well nourished Nutritional Appearance: well nourished Orientation/consciousness: patient oriented x3 Limitations: no limitations HENMT: Head: normal to inspection Ears: hearing grossly normal bilaterally, external ears normal, mastoids normal, no periauricular adenopathy and Abnormal EAC present cerumen impaction bilateral Face/Nose/Sinus: Normal external nose present Mouth: Yes Normal oral and palatal mucosa present, Yes lip normal, Yes tongue normal and Yes moist mucous membranes Throat: posterior oropharynx normal, uvula midline and no uvular edema Eyes: General: appearance normal, both eyes and all related structures Alignment and Position: alignment normal Neck: Neck: normal visual inspection, full ROM, no lymphadenopathy and no meningeal signs Chest: Chest palpation & inspection: normal inspection of the chest Resp: Effort & Inspection: normal respiratory effort and able to speak in complete sentences Auscultation: clear to auscultation bilaterally, no crackles, no rales, no rhonchi and no wheezes Cardio: Rate: regular rate Skin: General skin exam: normal color and no rashes or lesions noted Neuro: General: patient oriented x3, gait normal, moves all extremities and no meningeal signs Cognition (Neuro): normal cognition Speech: normal speech Gait exam (Neuro): Normal gait present Extrem: General: normal to inspection, full ROM, capillary refill normal and normal gait Psych: Appearance: grossly normal and well kempt Mental Status: mental status grossly normal Speech and movement: Normal speech and movement present and Clear speech present Affect: normal affect Attitude: cooperative Course Course Level of Care: Express Care Visit Vital Signs Vital signs: Vital Signs Temperature 97.8 F 07/07/24 13:35 Pulse Rate 68 07/07/24 13:35 Respiratory Rate 16 07/07/24 13:35 Blood Pressure 112/71 07/07/24 13:35 Pulse Oximetry 100 07/07/24 13:35 Oxygen Delivery Room Air 07/07/24 13:35 Temperature 97.8 F 07/07/24 13:35 Pulse Rate 68 07/07/24 13:35 Respiratory Rate 16 07/07/24 13:35 Blood Pressure 112/71 07/07/24 13:35 Pulse Oximetry 100 07/07/24 13:35 Oxygen Delivery Room Air 07/07/24 13:35 Reviewed Procedures Ear Wax Removal Both Ears: Ear Wax Removal Date: 07/07/24 Ear Wax Removal Time: 13:55 Cerumenolytic Used: other (Water peroxide) Results: Re-examined: cerumen removed completely TM Examination: TM(s) intact, normal appearance Ear Canal Exam: atraumatic Patient Tolerated Procedure: well Complications: no problems Technique: ear canal irrigated and ear canal curetted Medical Decision Making MDM Narrative Medical decision making narrative: Patient sitting comfortably in exam room. Nontoxic, vitals stable. Patient in no acute distress Patient presents for right ear discomfort, bilateral cerumen impaction noted. Areas irrigated, cerumen removed. Significant clear fluid noted behind right TM. Left within defined limits Patient appropriate for outpatient treatment with close follow-up. Discussed importance of the steroids not work she is follow-up for further evaluation with either ENT or primary care provider which she verbalized understanding Discharge instructions reviewed with patient, as well as provided in writing per nursing staff. The instructions also include specific and strict return/GO TO THE ER as well as f/u information. All questions have been answered, and the patient deny any further questions with discharge and discharge plan. Some parts of this dictation were generated by voice recognition software and may contain typographical and/or grammatical inaccuracies. Medical Records Medical records reviewed: Yes I reviewed the external patient's medical records. Vital Signs Vital Signs: Vital Signs Temperature 97.8 F 07/07/24 13:35 Pulse Rate 68 07/07/24 13:35 Respiratory Rate 16 07/07/24 13:35 Blood Pressure 112/71 07/07/24 13:35 Pulse Oximetry 100 07/07/24 13:35 Oxygen Delivery Room Air 07/07/24 13:35 Temperature 97.8 F 07/07/24 13:35 Pulse Rate 68 03/27/25 13:35 Respiratory Rate 16 07/07/24 13:35 Blood Pressure 112/71 07/07/24 13:35 Pulse Oximetry 100 07/07/24 13:35 Oxygen Delivery Room Air 07/07/24 13:35 Reviewed Lab Data Lab results reviewed: Yes I reviewed the patient's lab results. Labs: Reviewed Critical Care Time Critical Care Time Critical Care Time: No Discharge Plan Discharge Clinical Impression: Bilateral impacted cerumen Acute serous otitis media of right ear Qualifiers: Recurrence: not specified as recurrent Qualified Code(s): H65.01 - Acute serous otitis media, right ear Patient Disposition: Home, Self-Care Condition: Stable Instructions: Antibiotic Form, Carbamide Peroxide (Into the ear), Fluid In The Ear (Serous Otitis Media) (ED) Additional Instructions: Take steroid as prescribed Continue taking allergy medication and using Flonase twice daily. Most important part of your care is following up with your primary care provider for or ENT for further evaluation especially if symptoms continue For new or worsening symptoms go directly to the emergency room Patient Language: Slovenian Prescriptions: New prednisone 20 mg tablet See Rx Instructions .Route .COMPLEX Qty: 9 0RF Rx Instructions: Take 40 mg daily for 3 days, 20 mg daily for 3 days No Action albuterol sulfate 90 mcg/actuation HFA aerosol inhaler 2 puff INHALATION DIRECTED Lactobacillus acidoph-L. bifid 1 billion cell Capsule 1 cap PO DAILY levothyroxine 75 mcg tablet See Rx Instructions .ROUTE .COMPLEX Qty: 90 3RF Dose Instruction: Take one (1) tablet by mouth every day Rx Instructions: Take one (1) tablet by mouth every day ibuprofen 600 mg Tablet 600 mg PO Q6H PRN (Reason: Cramping) Qty: 30 0RF fluticasone propionate 50 mcg/actuation spray,suspension 2 spray INTRANASAL DAILY Qty: 16 1RF Rx Instructions: administer into each nostril Follow-up/Referrals: Kyrie Miranda DO [Primary Care Provider] - 1 Week [facility] Time of Disposition: 14:20
== END 2024-07-07 14:25 | disposition home or self-care (01) ==
PROVIDERS: Emergency Provider Nurse Practitioner; PCP Internal Medicine
DX: H61.23 Impacted cerumen, bilateral (principal); H65.01 Acute serous otitis media, right ear
CPT/HCPCS: 69210; 99213; G0463

== ENCOUNTER 2024-11-04 09:56 | Outpatient (CLI) | payer OTHER, SELFPAY ==
--- OUTSIDE RECORDS SUMMARY | 2024-11-04 09:59 | XMS_ITS | Clinical Summary ---
Author Organization [facility] Address [address] [place] [address] Care Team Providers Care Adzing And Boring Machine Feeder Name Role Phone Unavailable Primary Care Provider Unavailabl e Social History Tobacco Use Types Packs/Day Years Used Date Smoking Tobacco: Never Assessed Comments Unknown Sex and Gender Information Value Date Recorded Sex Assigned at Not on file Legal Sex Female 7:59 AM CDT Gender Identity Not on file Sexual Orientation Not on file Last Filed Vital Signs Vital Sign Reading Time Taken Comments Blood Pressure 120/78 04/24/2014 11:07 AM ACUPUNCTURIST Pulse 72 04/24/2014 11:07 AM ACUPUNCTURIST Temperature - - Respiratory Rate - - Oxygen Saturation - - Inhaled Oxygen Concentration - - Weight 74.4 kg (164 lb) 04/24/2014 11:07 AM ACUPUNCTURIST Height 175.3 cm (5' 9) 11/24/2013 2:58 PM CDT Body Mass Index 24.22 11/24/2013 2:58 PM CDT Plan of Treatment Health Maintenance Due Date Last Done Comments Cervical Cancer Screening Pa p Smear (Age 30 to 64) Every 3 Years 1982 Annual Physical 1985 Hepatitis C 2000 DTaP, Tdap and Td Vaccines ( 1 - Tdap) 2001 Hepatitis B Vaccines (1 of 3 - 19+ 3-dose series) 2001 HPV Vaccines (1 - 3-dose SCD M series) 2009 Cervical Cancer Screening Pa p with HPV Testing (Age 30 to 64) Every 5 Years 2012 Cervical Cancer Screening with HPV 2012 Mammogram Screening 2022 COVID-19 Vaccine (2023-2 5 season) 2023 Meningococcal B Vaccine Aged Out No l onger eligible based on patient's age to complete this topic Meningococcal Vaccine Aged Out No vj ami eligible based on patient's age to complete this topic Pneumococcal Vaccine: Pediat rics (0 to 5 Years) and At-Risk Patients (6 to 49 Years) Aged Out No longer eligible b ased on patient's age to complete this topic RSV Immunizations Under 20 Months Aged Out No longer eligible based on patient's age to complete this topic
--- OUTSIDE RECORDS SUMMARY | 2024-11-04 09:59 | XMS_ITS | Referral Summary ---
Author Organization [facility] Address [address] [place] [address] Care Team Providers Care Division Toll Wire Chief Name Role Phone Kyrie Miranda DO Primary Care Provider [phone] Allergies No known active allergies Medications ascorbic acid (ascorbic acid with eulalio hips) 500 mg tablet Take 500 mg by mouth daily. Active vit-iron fum-folic ac ( VITAMIN) 27 mg iron- 0.8 mg tablet Active folic acid (FOLVITE) 400 mcg tablet Take 400 mcg by mouth daily Active progesterone 50 mg/mL injection Inject 25mg to 100mg IM daily as directed by 30 mL 2 1 Active levothyroxine (SYNTHROID) 50 mcg tablet TAKE ONE (1) TABLET BY MOUTH EVERY DAY 30 tablet 3 1 Active estradioL (ESTRACE) 2 mg tablet TAKE one (1) TABLET (2 MG TOTAL) BY MOUTH THREE (3) (THREE) TIMES A DAY 90 tablet 2 1 Active BD Luer-Corey Syringe 3 mL 18 x 1 1/2 syringe USE for progesterone injections 30 each 1 1 Active Active Problems Problem Noted Date Diagnosed Date Infertility, female 07/06/2018 Scoliosis 09/07/2014 Lumbago 05/02/2014 Arthralgia of hip 02/06/2014 Mass of breast 01/19/2014 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 Scoliosis Sacroiliac joint pain Asthma Allergic rhinitis Social History Tobacco Use Types Packs/Day Years Used Date Smoking Tobacco: Never Alcohol Use Standard Drinks/Week Comments Not Currently 0 (1 standard drink = 0.6 oz pur e alcohol) Comments Unknown Sex and Gender Information Value Date Recorded Sex Assigned at Not on file Legal Sex Female 7:13 AM TONGUE AND QUARTER STITCHER Gender Identity Not on file Sexual Orientation Not on file 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 file Not on file Not on file Last Filed Vital Signs Vital Sign Reading Time Taken Comments Blood Pressure 127/76 02/15/2021 2:27 PM CDT Pulse 60 08/05/2020 10:52 PM CDT Temperature 37.2 C (99 F) 08/05/2020 10:52 PM CDT Respiratory Rate 18 08/05/2020 10:52 PM CDT Oxygen Saturation 100% 08/05/2020 10:52 PM CDT Inhaled Oxygen Concentration - - Weight 77.1 kg (170 lb) 02/15/2021 2:27 PM CDT Height 177.8 cm (5' 10) 02/15/2021 2:27 PM CDT Body Mass Index 24.39 02/15/2021 2:27 PM CDT Plan of Treatment Not on file Procedures Procedure Name Priority Date/Time Associated Diagnosis Comments HEPATITIS C ANTIBODY Routine 10/21/2019 4:23 PM CDT Screening for STDs (sexually transmitted diseases) from Last 3 Months or Most Recently Relevant to Health Maintenance Results * Hepatitis C antibody (10/21/2019 4:23 PM CDT) Hep C Ab Nonreactive Nonreactive [facility] Comment:Antibodies to HCV no t detected. Does NOT exclude the possibility of recent exposure to HCV. Blood specimen (specimen) 10/21/2019 4:23 PM CDT 10/21/2019 7:28 PM CDT us Cassy Watt MD LAB MICROBIOLOGY - GENERAL O RDERABLES Edited Result - Final [facility] Department [place] [address] from Last 3 Months or Most Recently Relevant to Health Maintenance Insurance [employer] Advance Directives For more information, please contact: [phone] * Full Code (Latest Code Status on File) Date Activated Date Inactivated Comments 07/24/2020 7:28 AM 07/25/2020 4:48 AM * Full Code Date Activated Date Inactivated Comments 12/19/2019 9:59 AM 12/20/2019 4:37 AM Care Teams Division Toll Wire Chief Relationship Specialty Start Date End Date Kyrie Miranda DO PCP - General Internal Medicine 01/04/21
--- OUTSIDE RECORDS SUMMARY | 2024-11-04 09:59 | XMS_ITS ---
Author Organization [facility] Address [address] [place] [address] Care Team Providers Care Dog License Officer Supervisor Name Role Phone Azul Hendrix Primary Care Provider [phone] Migration, Provider Unavailable Unavailable REASON FOR VISIT EMR-Jhon Encounters Encounter Location Date Provider Diagnosis [facility] [address] [place] [address] 03/13/2024 Provider Migration Plan Of Treatment No Information Progress Notes * Mere HANSON RDOB:[birth year] (43 yo F)Acc No.[id number]:03/13/2024 Patient: Eden Mere JANE Account Number: :1980 A ge:43 Y S ex:Female Phone: Address:[address], [place], [address] Subjective: * Chief Complaints: * E MR-Jhon * * Date:
--- OUTSIDE RECORDS SUMMARY | 2024-11-04 09:59 | XMS_ITS | Patient Health Record ---
Author Organization [facility] Address [address] [place] [address] Care Team Providers Care Tunnel Elastic Operator Chainstitch Name Role Phone Ruma Azul Primary Care Provider [phone] Ayla Cheema Unavailable [phone] Dr. Tres Barrett Unavailable [phone] Migration, Provider Unavailable Unavailable Allergies No Known Allergies Reason For Referral No Information Medications Medication SIG (Take, Route, Frequency, Duration) Notes Start Date End Date Status Azithromycin 250 MG Tablet 2 tablets onc e a day for 1 day, 1 tablet once a day for 4 days Orally; Duration: 5 days 09/19/2024 Active Airsupra 90-80 MCG/ACT Aerosol 2 puffs Inhalation 4 times a day As needed 09/19/2024 Active predniSONE 20 MG Tablet 3 tablets once a day for 3 days, 2 tablets once a day for 3 days, 1 tablet once a day for 3 days Orally; Duration: 9 days 09/19/2024 Active Problems Problem Type SNOMED Code ICD Code Onset Dates Problem Status W/U Status Risk Notes Problem Disorder of nasal sinus (disorder) (1546047) Other specified disorders of nose and nasal sinuses (J34.89) 6 Problem resolved confirmed Problem Disorder of upper respiratory system (591568677) Other diseases of nasal cavity and sinuses (478.19) 6 Problem resolved confirmed Problem Benign neoplasm of skin of face (03128564) Benign neoplasm of skin of other and unspecified parts of face (216.3) 6 Problem resolved confirmed Vital Signs Heart Rate 70 /min 09/19/2024 Temperature 98.0 degrees Fahrenheit 09/19/2024 Oximetry 99 % 09/19/2024 Blood pressure diastolic 78 mm Hg 09/19/2024 Weight-kg 77.34 kg 09/19/2024 Blood pressure systolic 132 mm Hg 09/19/2024 Weight 170.5 lbs 09/19/2024 Encounters Encounter Location Date Provider Diagnosis [address] [address] 07/26/2024 Ayla Cheema Acute non-recurrent maxillary sinusitis J01.[address] [address] 09/19/2024 Dr. Tres Barrett Acute pneumonia J18.[address] [address] 03/12/2024 Provider Migration [address] [address] 03/13/2024 Provider Migration Assessments Encounter Date Diagnosis (ICD Code) Assessment Notes Treatment Notes Treatment Clinical Notes Section Notes 07/26/2024 Acute non-recurrent maxillary sinusitis (ICD-10 - J01.00) - Treat for sinus infection with Augmentin BID x 10 days; take with food. - Encouraged use of sinus nasal risne to help with congestion as needed. - Continue daily allergy medications and nasal sprays. - F/U if symptoms persist, worsen on antibiotic treatment. - Steroid injection given in office today. 09/19/2024 Acute pneumonia (ICD-10 - J18.9) Plan Of Treatment No Information Insurance Providers Payer Name Payer Address Payer Phone Subscriber Number Group Number Insured Name Patient Relationship to Insured Coverage Start Date Coverage End Date [facility] [address] [address] [place] [address] [id number] [phone] Mere Connell Self - patient is the insured Medications Administered Medication Instructions Date of Administration Dosage Notes dexAMETHasone 07/26/2024 6 mg
--- OUTSIDE RECORDS SUMMARY | 2024-11-04 09:59 | XMS_ITS | Clinical Summary ---
Author Organization [facility] Address [address] [place] [address] Care Team Providers Care Loan Auditor Name Role Phone Kyrie Miranda DO Primary Care Provider [phone] Source Comments [facility],non-owned Affiliates and Associated Physician Practices is amultiple site organization consisting of ambulatory clinics and hospital sitesin [place], [place], [place] and [place]. This disclosure is being madepursuant to the Care Everywhere program and may not contain all information available regarding this patient. Last updated 18.[facility] Social History Tobacco Use Types Packs/Day Years Used Date Smoking Tobacco: Never Assessed Comments No Sex and Gender Information Value Date Recorded Sex Assigned at Not on file Legal Sex Female 2:16 PM CDT Gender Identity Not on file Sexual Orientation Not on file Plan of Treatment Health Maintenance Due Date Last Done Comments LIPID TESTING 1982 MAMMOGRAM 1982 HEPATITIS C SCREENING 12/23/2000 DTAP/TDAP/TD VACCINES (1 - Tdap) 2001 HEPATITIS B VACCINE (1 of 3 - 19+ 3-dose series) 2001 PAP SMEAR 12/29/2003 HPV VACCINE (1 - 3-dose SCDM series) 2009 COVID-19 VACCINE ( season) 2023 01/27/2023, 02/08/2022, 07/02/2021, Additional history exists DEPRESSION SCREENING 04/13/2024 INFLUENZA VACCINE (#1) 2024 3, 02/07/2022, 02/27/2021 ZOSTER VACCINE (1 of 2) 2032 HIV SCREENING Completed 08/12/2023, 03/29/2021 HIB VACCINE Aged Out No longer eligi ble based on patient's age to complete this topic MENINGOCOCCAL (Group B) VACCINE SHARED DECISION-MAKING Aged Out No longer eligible based on patient's age to complete this topic MENINGOCOCCAL GROUPS A/C/Y/W VACCINE Aged Out No longer eligible based on patient's age to complete this topic PNEUMOCOCCAL VACCINE Aged Out No long er eligible based on patient's age to complete this topic Insurance Care Teams Loan Auditor Relationship Specialty Start Date End Date Kyrie Miranda DO PCP - General 10/08/21
--- OUTSIDE RECORDS SUMMARY | 2024-11-04 09:59 | XMS_ITS | Clinical Summary ---
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 Scoliosis Sacroiliac joint pain Asthma Allergic rhinitis Fibroids Family History Medical History Relation Name Comments Alcohol abuse Maternal Grandfather Family history of alcoholism - Relation: Grandfather (Added by TW Conv) Cancer Maternal Grandfather Family history of malignant neoplasm - Relation: Grandfather (Added by TW Conv) Diabetes Maternal Grandfather Family history of diabetes mellitus - Relation: Grandfather (Added by TW Conv) Heart disease Maternal Grandfather Family history of cardiac disorder - Relation: Grandfather (Added by TW Conv) Lung disease Maternal Grandfather Family history of lung disease - Relation: Grandfather (Added by TW Conv) Cancer Other 1 Family history of malignant neoplasm - Relation: Grandmother (Added by TW Conv) Arthritis Other 2 Family history of arthritis - Relation: Grandmother (Added by TW Conv) Hypertension Other 3 Family history of hypertension - Relation: Grandmother (Added by TW Conv) Non-Hodgkin's Lymphoma Paternal Grandfather Relation Name Status Comments Maternal Grandfather Other 1 Other 2 Other 3 Paternal Grandfather Social History Tobacco Use Types Packs/Day Years Used Date Smoking Tobacco: Never Alcohol Use Standard Drinks/Week Comments Not Currently 0 (1 standard drink = 0.6 oz pur e alcohol) Comments Unknown Sex and Gender Information Value Date Recorded Sex Assigned at Not on file Legal Sex Female 7:13 AM [employer] Gender Identity Not on file Sexual Orientation Not on file 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 Last Filed Vital Signs Vital Sign Reading [...] 02/15/2021 2:27 PM CDT Plan of Treatment Health Maintenance Due Date Last Done Comments Breast Cancer Screening-Mammogram 1982 Cervical Cancer Screening 1982 Depression Screening 1982 DTaP/Tdap/Td Vaccine (1 - Tdap) 1993 Varicella Vaccines (1 of 2 - 13+ 2-dose series) 12/29/1995 Hepatitis B Screening 2000 Regular Well Visit/Exam 18-64 2000 Pneumococcal vaccine <65 (1 of 2 - PCV) 2001 HPV Vaccines (1 - 3-dose SCDM series) 2009 Covid-19 Vaccine (3 - season) 12/13/202307/2020, 04/19/2020 Influenza Vaccine (#1) 2024 Hepatitis C Screening Completed 10/21/2019 Procedures Procedure Name Priority Date/Time Associated Diagnosis Comments HEPATITIS C ANTIBODY Routine 10/21/2019 4:23 PM CDT Screening for STDs (sexually transmitted diseases) from Last 3 Months or Most Recently Relevant to Health Maintenance Results * Hepatitis C antibody (10/21/2019 4:23 PM CDT) Hep C Ab Nonreactive Nonreactive ADAIR WAGONER Comment:Antibodies to HCV no t detected. Does NOT exclude the possibility of recent exposure to HCV. Blood specimen (specimen) 10/21/2019 4:23 PM CDT 10/21/2019 7:28 PM CDT us Cassy Watt MD LAB MICROBIOLOGY - GENERAL O RDERABLES Edited Result - Final ADAIR WAGONER [facility] Department [place] [address] from Last 3 Months or Most Recently Relevant to Health Maintenance Insurance [employer] [place] [address] Advance Directives For more information, please contact: [phone] * Full Code (Latest Code Status on File) Date Activated Date Inactivated Comments 07/24/2020 7:28 AM 07/25/2020 4:48 AM * Full Code Date Activated Date Inactivated Comments 12/19/2019 9:59 AM 12/20/2019 4:37 AM Care Teams Student Education Specialist Relationship Specialty Start Date End Date Kyrie Miranda DO PCP - General Internal Medicine 01/04/21
--- OUTSIDE RECORDS SUMMARY | 2024-11-04 10:00 | XMS_ITS | Data Portability ---
Author Organization [facility] Address [address] [place] [place] [address] [address] Care Team Providers Care Community Health Advocate Name Role Phone SYEDA LOCKETT Primary Care Provider [phone] Assessment Encounter Date Assessment Date Assessment LastModified by Organization Details LastModified Time 10/28/2023 10/28/2023 Patient is _39__weeks . Discussed plan. Not available 10/28/2023 13:49:34 07/06/2024 07/06/2024 Annual gynecological exam performed. Patient will come back in a year unless there are new symptoms. Suggest Calcium with Vitamin D if not eating in diet. Patient advised to get annual flu shot. Recommend yearly physicals and preform monthly breast exams. Genetic testing is available for patients with family history of cancer. Engage in safe sexual practices, use condoms. Encouraged to have daily exercise. Avoid tobacco and illicit drugs, moderation of alcohol. If BMI greater than 25 dietary consult advised. If you have any questions please call or email. send mammogram by portal [employer] Not available 07/06/2024 11:57:43 Plan of Treatment Reminders Order Date Submit Date Provider Last Modified By Organization Details Last Modified Time Details Appointments None recorded. Lab None recorded. Referral None recorded. Procedures None recorded. Surgeries None recorded. Imaging non-stress test 2023 024 evan nation Spencer, [address], [address], [place], [address], 03:46:23 US, obstetric, follow-up 2023 024 [email or web address] Spencer[address], [address], [place], [address], 4 18:40:25 US, obstetric, biophysical profile + non-stress test 2023 024 [email or web address] [address], [address], [place], [address], 4 18:40:25 Medication Orders estradiol 0.01% (0.1 mg/gram) vaginal cream 2024 025 [email or web address] [facility], [address] [place] [address], [address], 15:41:35 Patient TargetsNo targets recorded. Patient InstructionsNo instructions recorded. Reason for Referral None Reported. Results Created Date Observation Date Name Description Value Unit Range Abnormal Flag Note LastModifiedBy Organization Detail LastModifiedTime 10/07/19 24 10/07/2023 CULTU RE: GROUP B STREP SCREE N, REFLE X SUSCE PTIBI LITY culture: group B strep, reflex susceptibili ty ([facility]) CANCEL LED Store d at [facility] e Not Available [facility] (Lab) [address], [place], [address], 10/09/2023 14:22:23 10/14/19 24 10/14/2023 CULTU RE: GROUP B STREP SCREE N, REFLE X SUSCE PTIBI LITY result report SEE RESULT S BELOW Test: Cultu re: Group B Strep , Refle x Susce ptibi lity ([facility] ) Speci men Sourc e: Vagin a/Rec soto Speci men Type: Vagin al/Re ctal Speci men Date: 1516 Resul t Date: 1415 Resul t Statu s: Final resul t Abnor mal: No Resul ting Lab: [facility] [address] [facility] [address] Tel: CULTU RE ----- ----- ----- --- No Group B strep isola lauren at 2 days (kalen ctive broth valentin munoz) Not Available [facility] (Lab) [address] [place], [address], 10/17/2023 15:18:18 12/09/19 24 12/09/2023 VAGIN ITIS/ VAGIN OSIS, DNA PROBE lusi sp. detection, direct probe Negati ve negati ve Not Available [facility] (Lab) [address] [place], [address], 12/10/2023 10:02:09 12/09/19 24 12/09/2023 VAGIN ITIS/ VAGIN OSIS, DNA PROBE gardnerella vag. detection, direct probe Negati ve negati ve Not Available [facility] (Lab) [address] [place], [address], 12/10/2023 10:02:09 12/09/19 24 12/09/2023 VAGIN ITIS/ VAGIN OSIS, DNA PROBE trichomonas vag. detection, direct probe Negati ve negati ve Not Available [facility] (Lab) [address] [place], [address], 12/10/2023 10:02:09 07/07/19 25 07/06/2024 IMAGE GUIDE D PAP AND HPV REGAR DLESS image guided Pap, HPV regardless of Pap result SEE RESULT S BELOW CASE REPOR T: Cytol ogy Gynec ologi dora Repor t Case: [id number] Autho mercedes malik Provi kimmy: Torrie Coates NP Colle cted: 07/06 1315 Order ing Locat ion: [place] [facility] Recei christian: 07/07 0201 First Scree n: Noora ni, Moham ed, CT Speci men: Scree tristen Pap - Image d, Cervi x STATE MENT OF ADEQU ACY: Satis facto ry for evalu ation Trans forma tion zone compo nent prese nt ----- ----- ----- ----- ----- ----- ----- ----- ----- ----- ----- ----- ----- ----- ----- ----- ----- ---- FINAL DIAGN OSIS: Negat luz for Intra epith elial Lesmk bates or Nivia strauss (NIL) . Elect jordy vidales d by Dorian Ashford ed, CT on 2024 at 2310 CDT ----- ----- ----- ----- ----- ----- ----- ----- ----- ----- ----- ----- ----- ----- ----- ----- ----- ---- HPV RESUL TS: HPV mRNA E6/E7 : No HPV mRNA Detec lauren NOTE: This high risk HPV mRNA assay detec ts fourt een high- risk HPV types (16, 18, 31, 33, 35, 39, 45, 51, 52, 56, 58, 59, 66, 68) witho ut diffe renti ation . COMME NT: This speci men was revie wed by a Cytot echno logis t and/o r Patho logis t (as indic ated in this repor t) after evalu ation using the Thinp rep Imagi ng Syste m. CLINI DORA INFOR MATIO N: Menst rual Statu s: LMP (if appli cable ): Clini dora Histo ry/Pr eviou s Pap: Type of Neopl matias (if appli cable ): Signi luisito t Clini dora Findi ngs: Other Histo ry: Hormo rito (if appli cable ): PAP EDUCA MELYSSA L NOTE: The Pap Test is a scree tristen test with an inher ent false negat luz rate. Liqui d-bas ed sampl ing may decre ase, but will not elimi haris, false negat luz resul ts. A negat luz resul t does not precl ude the prese nce and/o r devel opmen t of disea se, since the prese nce of abnor mal cells in the sampl e depen ds on the locat ion of the lesio n and sampl ing techn ique. Caroline nued regul ar scree tristen is the best metho d of cance r preve ntion . If repor lauren cytol ogic findi ng do not corre late with physi dora and/o r histo rical findi ngs, furth er inves tigat ion is recom wang d, as clini jerod warra nted. Not Available [facility] (Lab) [address], [place], [address], 07/12/2024 00:14:22 10/07/19 24 10/07/2023 non-s tress test No observ ation record ed. [email or web address] [facility] [address], [place], [address], 10/07/2023 12:46:45 10/07/19 24 10/07/2023 US, obste tric, follo w-up No observ ation record ed. [email or web address] [facility] [address], [place], [address], 10/07/2023 13:10:26 10/07/19 24 10/07/2023 US, obste tric, follo w-up No observ ation record ed. [email or web address] [address] [facility], [place], [address], 10/13/2023 13:08:11 10/14/19 24 10/14/2023 US, obste tric, follo w-up No observ ation record ed. MARQUISE [facility] [address], [place], [address], 10/19/2023 11:14:39 10/14/19 24 10/14/2023 US, obste tric, follo w-up No observ ation record ed. [email or web address] [facility] [address], [place], [address], 10/19/2023 10:25:25 10/14/19 24 10/14/2023 non-s tress test No observ ation record ed. [email or web address] [facility] [address], [place], [address], 10/14/2023 15:11:28 10/21/19 24 10/21/2023 US, obste tric, bioph ysica l profi le + non-s tress test No observ ation record ed. [email or web address] [facility] [address], [place], [address], 10/21/2023 12:37:21 10/21/19 24 10/21/2023 non-s tress test No observ ation record ed. [email or web address] [facility] [address], [place], [address], 10/21/2023 12:08:46 10/21/1910/21/2023 US, obste tric, follo w-up No observ ation record ed. [email or web address] [address], [place], [address], 10/22/2023 07:01:40 10/28/19 24 10/28/2023 US, obste tric, follo w-up No observ ation record ed. [email or web address] [facility] [address], [place], [address], 10/28/2023 12:24:22 10/28/19 24 10/28/2023 US, obste tric, bioph ysica l profi le + non-s tress test No observ ation record ed. [email or web address] [facility] [address], [place], [address], 10/28/2023 12:24:11 10/28/19 24 10/28/2023 non-s tress test No observ ation record ed. [email or web address] [facility] [address], [place], [address], 10/28/2023 12:02:03 10/28/19 24 10/28/2023 US, obste tric, follo w-up No observ ation record ed. [email or web address] [address], [place], [address], 10/29/2023 11:36:07 Result Notes None recorded. Problems Name Problem SNOMED Code Status Onset Date Resolution Date Notes Provider Name and Address Organization Details Recorded Time Elderly primigra rafael [id number] Completed declines NIPT Denisha sarah null, [facility] 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 2 16:31:56 Scoliosi s deformit y of spine 828732443 Active anesthes ia consult with prereg Denisha Vivar l null, [facility] 2 16:31:56 Hypothyr oidism 00250731 Completed borderli ne - increase d to 75mcg 08/19 repeat tsh at 37-38 wks!!! Denisha Vivar l null, [facility] 2 16:31:56 Advanced maternal age 361254378 Completed bASA, antenata l testing 36 weeks Torrie Mccartney CNM [address], [place], [address], [facility] 4 13:55:14 COVID-19 857463084 Completed bASA , serial growth Torrie Mccartney CNM [address], [place], [address], [facility] 4 13:55:14 Placenta circumva llata 9112503 Completed Torrie Mccartney CNM [address], [place], [address], [facility] 4 13:55:14 Small for gestatio nal age fetus 652271137 Completed [facility] 10/14/23 0730 U/S Torrie Mccartney CNM [address], [place], [address], [facility] 4 13:55:14 Family planning surveill ance Completed 201003/11/2021 Contrace ptive surveill ance, unspecif ied;James rded Elsewher e: No Locat ion: [facility] S ource: EHR Animal Husbandman mark: N Practi ce ID: 0001 Alberto lable Time: 03:30:00 PM Adriana Covarrubias MD [address], [place], [address], [facility] 1 18:04:04 Speciali zed medical examinat ion Completed 201303/11/2021 ROUTINE RECREATIONAL PROGRAMS DIRECTOR EXAMINAT ION;James rded Elsewher e: No Locat ion: [facility] S ource: EHR Animal Husbandman mark: N Practi ce ID: 0001 Alberto lable Time: 08:30:[address] MD [address], [place], [address], [facility] 1 18:04:16 Screenin g for malignan t neoplasm of cervix Completed 201303/11/2021 Screenin g for malignan t neoplasm s of the cervix;R ecorded Elsewher e: No Locat ion: [facility] S ource: EHR Animal Husbandman mark: N Kiati ce ID: 0001 Alberto lable Time: 08:30:00 AM Adriana Covarrubias MD [address], [place], [address], [facility] 18:04:09 Breast lump 77046233 Completed 201303/11/2021 Breast lump;Rec orded Elsewher e: No Locat ion: [facility] S ource: EHR Animal Husbandman mark: N Kiati ce ID: 0001 Alberto lable Time: 08:30:00 AM Adriana Covarrubias MD [address], [place], [address], [facility] 18:04:01 Finding of fertilit y Completed 201703/11/2021 Female infertil ity;James rded Elsewher e: No [facility] Animal Husbandman mark: N Shelley ce ID: 0001 Alberto lable Time: 09:30:00 AM Adriana Covarrubias MD [address], [place], [address], [facility] 18:04:[address] Concept Completed 201903/11/2021 Encntr for microbiology director exam (general ) (routine ) w/o abn findings ;Recorde d Elsewher e: No [facility] ource: EHR Animal Husbandman mark: N Kiati ce ID: 0001 Alberto lable Time: 08:30:00 AM Adriana Covarrubias MD [address], [place], [address], [facility] 18:04:[address] Concept Completed 201903/11/2021 Encntr for routine child health exam w/o abnormal findings ;Recorde d Elsewher e: No Locat ion: [facility] S ource: EHR Animal Husbandman mark: N Kiati ce ID: 0001 Alberto lable Time: 08:30:00 AM Adriana Covarrubias MD [address], [place], [address], [facility] 1 18:04:11 Anxiety in pregnanc y 5964370215 9109 Active 2020 Adriana Covarrubias MD [address], [place], [address], [facility] 1 19:00:59 IVF - in-vitro fertiliz ation pregnanc y 0945405163 2101 Completed 2020 echo WNL- 3/11 & antenata l testing at 36s Denisha sarah null, [facility] 2 16:31:56 Uterine fibroids affectin g pregnanc y 03346815 Completed 2020 growth USs Denishareji sarah null, [facility] 2 16:31:56 Pregnanc y 33388897 Completed 202011/18/2021 Ramona Barbosa null, [facility] 4 11:54:46 COVID-19 036424705 Completed 2021 ASA QD & serial growth Denisha sarah null, [facility] 2 16:31:56 Hypothyr oidism 01426541 Active 2021 levothyr oxine 75mcg Torrie Mccartney CNM [address], [place], [address], [facility] 4 13:55:14 Hypothyr oidism 04215972 Completed 2021 levothyr oxine 75mcg Torrie Mccartney CNM [address], [place], [address], [facility] 4 13:55:14 Pregnanc y 34652638 Completed 202311/06/2023 Ramona del rio [facility] 4 11:54:45 History of SARS-CoV -2 8967574275 36238928 Active 2023 Vianca del rio [facility] 4 09:37:23 Problem Notes None recorded. Procedures Surgical History Date Name Laterality Status Provider Name and Address Organization Details Recorded Time 2024 Date of Last Pap Smear completed [facility] 07/06/2024 11:13:06 2020 IVF - In vitro fertilization with pre-implantation genetic diagnosis completed [facility] 05/10/2021 09:58:21 2020 IVF - In vitro fertilization with pre-implantation genetic diagnosis completed [facility] 05/10/2021 09:56:36 2019 intrauterine artificial insemination completed [facility] 05/10/2021 09:57:19 2019 intrauterine artificial insemination completed [facility] 05/10/2021 09:57:26 2019 in vitro fertilization completed [facility] 04/22/2023 12:08:08 2019 in vitro fertilization completed [facility] 04/22/2023 12:08:11 2017 Periodontal mucosal grafting completed [facility] 05/10/2021 09:58:45 2017 hysterosalpingography completed [facility] 05/10/2021 09:57:40 Imaging Results None recorded. Procedure Notes None recorded. Medical Equipment None Reported. Allergies No known drug allergies Medications Name Sig Start Date Stop Date Status Note LastModified by Organization Details LastModified Time insulin syringe U-100 with needle 1/2 mL 29 USE DIRECTED WITH LEUPROLI DE 03/11 completed Not Available Not Available Not Available chlorphen iramine 4 mg tablet take 1 tablet by oral route every 4 hours as needed 03/11 completed Prescrib ed Elsewher e: Yes Loca tion: [facility] odify By: greta z Jean cronin DateTime : 04/15/19 08:30:00 AM Not Available Not Available Not Available Estrace 2 mg tablet 05/15 completed Not Available Not Available Not Available naproxen 375 mg tablet take 1 tablet by oral route 2 times every day with food 03/31 completed Prescrib ed Elsewher e: Yes Loca tion: [facility] odify By: ayah livingston DateTime : 04/08/20 03:30:00 PM Not Available Not Available Not Available fluconazo le 150 mg tablet Take 1 tablet by oral route. 09/27 completed Not Available Not Available Not Available clomiphen e citrate 50 mg tablet take 2 tablet by oral route days 5-9 of cycle 03/11 completed Prescrib ed Elsewher e: No Locat ion: [facility] odify By: jennifer wood DateTime : 06/03/19 02:36:30 PM Not Available Not Available Not Available prednison e 20 mg tablet 03/25 completed Not Available Not Available Not Available Pregnyl 10,000 unit intramusc ular solution inject (5000UNI TS) by intramus cular route x1 dose 03/11 completed Not Available Not Available Not Available folic acid 400 mcg tablet Take 1 tablet every day by oral route. 10/30 completed Not Available Not Available Not Available levothyro xine 25 mcg tablet 05/10 completed Not Available Not Available Not Available levothyro xine 75 mcg tablet TAKE ONE (1) TABLET EVERY DAY BY ORAL ROUTE. active Not Available Not Available No t Available Vitamin C 1,000 mg tablet Take 1 tablet every day by oral route. 01/08 completed Not Available Not Available Not Available triamcino lone acetonide 0.1 % dental paste 03/25 completed Not Available Not Available Not Available ibuprofen 100 mg tablet take 2 tablet by oral route 4 - 6 hours as needed with food 03/29 completed Prescrib ed Elsewher e: Yes Loca tion: [facility]ify By: jlhernan orosco DateTime : 04/08/20 11 03:30:00 PM Not Available Not Available Not Available benzonata te 100 mg capsule 08/11 completed Not Available Not Available Not Available levothyro xine 50 mcg tablet TAKE ONE (1) TABLET BY MOUTH EVERY DAY 09/04 completed Not Available Not Available Not Available cephalexi n 500 mg capsule Take 1 capsule 3 times a day by oral route for 14 days. 03/25 completed Not Available Not Available Not Available methylpre dnisolone 8 mg tablet 03/11 completed Not Available Not Available Not Available oseltamiv ir 75 mg capsule Take 1 capsule twice a day by oral route for 5 days. 08/11 completed Not Available Not Available Not Available budesonid e 0.25 mg/2 mL suspensio n for nebulizat ion 03/11 completed Not Available Not Available Not Available monteluka st 10 mg tablet take 1 tablet by oral route every day in the evening 04/15 completed Prescrib ed Elsewher e: No Locat ion: [facility] odify By: [email or web address] z Encoun ter DateTime : 01/18/20 14 08:30:00 AM Not Available Not Available Not Available mupirocin 2 % topical ointment 03/25 completed Not Available Not Available Not Available estradiol 0.01% (0.1 mg/gram) vaginal cream Insert 1 applicat orful by vaginal route. 2024 active pharmacy called advised 1 gram Not Available Not Available Not Available methylpre dnisolone 4 mg tablets in a dose pack Take 1 dose pk by oral route. 07/06 completed Not Available Not Available Not Available albuterol sulfate HFA 90 mcg/actua tion aerosol inhaler active Not Available Not Available Not Available ondansetr on 4 mg disintegr ating tablet Place 1 tablet 3 times a day by translin gual route as needed. 09/04 completed Not Available Not Available Not Available cefdinir 300 mg capsule 03/25 completed Not Available Not Available Not Available leuprolid e 1 mg/0.2 mL subcutane ous kit INJECT 5 TO 20 UNITS UNDER THE SKIN ONCE DAILY DIRECTED 03/11 completed Not Available Not Available Not Available amoxicill in 875 mg-potass ium clavulana te 125 mg tablet 08/11 completed Not Available Not Available Not Available Progester one in Oil 50 mg/mL intramusc ular 05/10 completed Not Available Not Available Not Available Extra Strength Pain Relief 500 mg capsule 10/30 completed Not Available Not Available Not Available Vitamin 27 mg iron-0.8 mg tablet take 1 tablet by oral route every day active Prescrib ed Elsewher e: Yes Loca tion: [facility] odify By: ct cronin DateTime : 01/18/20 14 08:30:00 AM Not Available Not Available Not Available azithromy niels 500 mg tablet 03/11 completed Not Available Not Available Not Available Asprin Ec Low Dose 81 mg tablet,de layed release Take 1 tablet every day by oral route. 10/30 completed Not Available Not Available Not Available Vitamin B6 100 mg tablet Take 1 tablet twice a day by oral route. 05/10 completed Not Available Not Available Not Available cyclobenz aprine 5 mg tablet 1 tab every 8 hours as needed 12/08 completed Not Available Not Available Not Available Menopur 75 unit subcutane ous solution INJECT 75 TO 300 UNITS SUBCUTAN EOUSLY DIRECTD BY PHYSICIA N. 03/11 completed Not Available Not Available Not Available Follistim AQ 900 unit/1.08 mL subcutane ous cartridge 03/11 completed Not Available Not Available Not Available Vitamin C active Not Available Not Queenie ilable Not Available Asprin Ec Low Dose 12/08 completed Not Available Not Available Not Available Ascorbic Acid with Ivanna Hips 09/04 completed Not Available Not Available Not Available meloxicam 7.5 mg/5 mL oral suspensio n take 5 millilit er by oral route every day 03/31 completed Prescrib ed Elsewher e: Yes Loca tion: [facility] odify By: ayah Encounte r DateTime : 01/18/20 14 08:30:00 AM Not Available Not Available Not Available Amrix 15 mg capsule,e xtended release take 1 capsule by oral route every day 02/11 completed Prescrib ed Elsewher e: Yes Loca tion: [facility] odify By: ayah Encounte r DateTime : 01/06/20 15 01:00:00 PM Not Available Not Available Not Available levothyro xine 50 mcg capsule Take 1 capsule every day by oral route. 05/10 completed Not Available Not Available Not Available Ed-ChlorP ed 2 mg/mL oral drops 02/11 completed Prescrib ed Elsewher e: Yes Loca tion: [facility] odify By: ayah Encounte r DateTime : 01/18/20 14 08:30:00 AM Not Available Not Available Not Available Claritin Liqui-Gel 10 mg capsule 04/15 completed Prescrib ed Elsewher e: Yes Loca tion: [facility] odify By: [email or web address] z Encoun ter DateTime : 02/12/20 16 08:30:00 AM Not Available Not Available Not Available Estarylla 0.25 mg-0.035 mg tablet 03/11 completed Not Available Not Available Not Available [facility] COVID-19 Antigen Rapid Home Test kit 03/25 completed Not Available Not Available Not Available Vitals Date Recorded Body height Body mass index (BMI) Body weight Systolic And Diastolic Provider Name and Address Organization Details Last Updated DateTime 07/06/2024 175.26 cm 25.1 kg/m2 67548.7 g 116/80 mm[Hg] Vianca Vasques [facility] 07/06/2024 11:12:42 Date Recorded Body height Body mass index (BMI) Body weight Systolic And Diastolic Provider Name and Address Organization Details Last Updated DateTime 10/28/2023 175.26 cm 27.9 kg/m2 68113.957 93 g 116/74 mm[Hg] Vianca Vasques [facility] 10/28/2023 12:03:17 Date Recorded Body height Body mass index (BMI) Body weight Systolic And Diastolic Provider Name and Address Organization Details Last Updated DateTime 12/09/2023 175.26 cm 25.3 kg/m2 08640.3 g 109/61 mm[Hg] Vianca Robertstz [facility] 12/09/2023 14:10:07 Social History Question Answer Notes LastModified by Organizat ion Details LastModified Time Tobacco Smoking Status Never Smoker Vianca Robertstz null, [facility] 04/22/2023 12:07:45 Do You Have An Advance Directive? No [email or web address] Information n ot available 05/10/2021 If You Are , What Was Your Level Of Alcohol Consumption Prior To ? Occasional Information not available 04/22/2023 Are You Blind Or Do You Have Difficulty Seeing? No [email or web address] Information n ot available 05/10/2021 What Is Your Level Of Caffeine Consumption? None [email or web address] Information not available 05/10/2021 How Much Tobacco Do You Chew? None [email or web address] Information not available 05/10/2021 In The 14 Days Before Symptom Onset, Have You Had Close Contact With A Laboratory-confirm ed COVID-19 While That Case Was Ill? No [email or web address] Information n ot available 05/10/2021 In The 14 Days Before Symptom Onset, Have You Had Close Contact With A Person Who Is Under Investigation For COVID-19 While That Person Was Ill? No [email or web address] Information not available 05/10/2021 Have You Been To An Area Known To Be High Risk For COVID-19? No [email or web address] Information not available 05/10/2021 Are You Deaf Or Do You Have Serious Difficulty Hearing? No [email or web address] Information not available 05/10/2021 What Type Of Diet Are You Following? REGULAR [email or web address] Information n ot available 05/10/2021 What Is The Highest Grade Or Level Of School You Have Completed Or The Highest Degree You Have Received? [id number] [email or web address] Information not available 05/10/2021 Are There Any Guns Present In Your Home? No [email or web address] Information not available 05/10/2021 Do You Use Protection During Sex? No [email or web address] Information not available 05/10/2021 Do You Use Your Seat Belt Or Car Seat Routinely? Yes [email or web address] Information not available 05/10/2021 Do You Have Smoke And Carbon Monoxide Detectors In Your Home? Yes [email or web address] Information not available 05/10/2021 How Much Tobacco Do You Smoke? No Information not available 05/10/2021 Do You Use Sunscreen Routinely? Yes Information not available 05/10/2021 Have You Used IV Drugs? No [email or web address] Information not available 05/10/2021 Do You Have Difficulty Walking Or Climbing Stairs? No [email or web address] Information not available 04/22/2023 Sex: Unknown Functional Status Question Answer Note LastModified by Organizat ion Details LastModified Time Do you use any illicit or recreational drugs? No [email or web address] Information not available 05/10/2021 What is your level of alcohol consumption? Occasional Information not available 12/09/2023 Are you able to walk? YESWOREST [email or web address] Information not available 05/10/2021 Are you able to care for yourself independently? 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 No [email or web address] Information not available 04/22/2023 What is your exercise level? Moderate [email or web address] Information not available 05/10/2021 Mental Status Question Answer Note LastModified by Organization D etails LastModified Time Do you feel stressed (tense, restless, nervous, or anxious, or unable to sleep at night)? [id number] [email or web address] Information not available 05/10/2021 Family History Relationship Description Onset Age of this Age Resolved Age Notes LastModified by Organization Details LastModified Time Paternal Grandfather Diabetes mellitus [email or web address] Not available 05/10 09:39:39 Paternal Grandfather Non-Hodgkin' s lymphoma (clinical) [email or web address] Not available 03/26 /2025 10:57:37 Maternal Grandfather Malignant tumor of colon [email or web address] Not available 05/10 09:39:39 Maternal Grandfather Malignant neoplasm of lung [email or web address] Not available 05/10 09:39:39 Maternal Grandfather Heart disease [email or web address] Not available 2021 10:00:08 Paternal Grandmother Malignant neoplastic disease [email or web address] Not available 05/10 09:39:39 Paternal Grandmother Hypertensive disorder [email or web address] Not available 05/10 09:39:39 Paternal Grandmother Malignant neoplasm of brain 31 Not available 2024 10:57:37 Maternal Grandmother Arthritis [email or web address] Not available 10:57:37 Maternal Grandmother Depressive disorder [email or web address] Not available 2021 10:00:08 Maternal Grandmother Anemia [email or web address] Not available 2021 10:00:08 Unspecified Relation Malignant tumor of breast great matern al grandm a [email or web address] Not available 05/15/2021 10:00:08 Notes:mat tello gma: Cancer, breast Maternal grandfather: Cancer, lung, Cancer, colon Maternal grandmother: Depression, Anemia Paternal grandfather: Lymphoma, Diabetes mellitus Paternal grandmother: Cancer, brain, Hypertension Medical History Condition Response Allergies (Food, seasonal, environmental ) Y Other N Breast Cancer N Drug/Latex Allergies/Reactions N Blood Transfusion N Dermatologic Disorders N Lung Disease Y Defects or Inherited Disease N Breast Problem Y Gestational Diabetes N Hematologic disorders N Anesthesia Complications N History of STI N Deep Vein Thrombosis N Polycystic ovary syndrome N Anxiety Disorder Y Autoimmune disease N Arthritis Y Infertility Y Polyps N Acid Reflux (GERD) Y History of abnormal pap N Cancer N Stroke N Varicosities N Neurologic/Epilepsy N Endometriosis N High Cholesterol N Headaches Y Fibromyalgia N Kidney Disease N Heart Problems N Kidney or Bladder Problems N Thyroid Problems Y GI Problems N Eating Disorder N Anemia N Art (IVF or FET) Y Psychiatric Illness N Ovarian Cancer N Diabetes N Pulmonary (TB, Asthma) Y Hepatitis/Liver Disease N No Past Medical History N Eczema N Urinary Tract Infection N Abuse/Domestic Violence N Asthma Y Trauma/Violence N Depression/ depression N Heart Disease N Pre-Eclampsia N Hypertension N Osteoporosis N Thrombophilias N Gynecological History Statement/Question Response Abnormal Pap N Date of Last Mammogram Date of LMP 01/28/2023 STIs/STDs N Was last menstrual period normal Y Duration of Flow (days) 3 Current Control Method None Frequency of Cycle (Q days) 28 Most Recent Bone Density Age of first menstrual cycle 14 Date of Last Pap Smear 07/06/2024 Desired Control Method LMP Definite Obstetrics History GPAL:G 3 P 2 0 1 2 Type Value Full Term 2 Spontaneous 1 Living 2 Total 3 Past Encounters Encounter ID Performer Location Encounter Start Date Encounter Closed Date Diagnosis/Indication Diagnosis SNOMED-CT Code Diagnosis ICD10 Code Diagnosis Note [id number] MD Delfina [place] [address],[place] [address] 03/11/2021 16:48:58 03/11/2021 17:34:29 Uncertain viability of 415753131 O36.80X9 [id number] Adriana Covarrubias MD [facility] [address],[place] [address] 03/11/2021 16:50:50 03/12/2021 09:01:44 IVF - in-vitro fertilization 8676930726 2 O09.819 Morning sickness 0944342 6 O21.9 Anxiety in 457 8467636 9109 F41.9 Subchorionic hematoma 60 9520654 O41.8X99 Uterine fi broids affecting 74801680 D25.9 [id number] Adriana Covarrubias MD [facility] [address],[place] [address] 03/29/2021 12:09:40 04/01/2021 10:50:15 Routine care 446902440 Z34.91 Elderly primigravida 293 09432 O09.519 IVF - in-v itro fertilization 2080790622 2102 O09.819 Scoliosis deformity of spine 611076070 M41.9 Uterine fi broids affecting 17916460 D25.9 O41.8X99 Z3A.14 [id number] Adriana Covarrubias MD [facility] [address],[place] [address] 03/29/2021 12:13:28 03/29/2021 14:53:29 Uterine fibroids affecting 47911432 D25.9 O41.8X99 Z3A.14 [id number] Adriana Covarrubias MD [facility] [address],[place] [address] 04/24/2021 11:00:45 04/24/2021 14:33:33 Anxiety in 2788078219 9109 F41.9 Elderly primigravida 293 65036 O09.519 [id number] Torrie Mccartney [facility] [address],[place] [address] 05/10/2021 09:28:11 05/10/2021 10:21:21 Routine care 703609679 Z34.92 [id number] Adriana Covarrubias MD [place] [address],[place] [address] 05/15/2021 09:58:07 05/15/2021 11:29:45 Routine care 159966516 Z34.91 Anxiety in 042 9603208 9109 F41.9 Elderly primigravida 293 27454 O09.519 IVF - in-v itro fertilization 3441971553 2102 O09.819 Uterine fi broids affecting 62131477 D25.9 O41.8X99 Z3A.14 Headache 70072877 R51.9 [id number] Adriana Covarrubias MD [facility] [address],[place] [address] 05/15/2021 09:58:07 05/15/2021 11:29:44 screening for malformation 681985374 Z36.3 [id number] MD Silvio [place] [address],[place] [address] 05/15/2021 11:35:28 05/15/2021 12:03:38 Elderly primigravida 76523074 O09.519 IVF - in-v itro fertilization 0584026541 2102 O09.819 Uterine fi broids affecting 74018578 D25.9 O41.8X99 Z3A.14 Headache 73348243 R51.9 [id number] Adriana Covarrubias MD [facility] [address],[place] [address] 06/07/2021 12:24:54 06/07/2021 12:57:55 Pre-existing maternal disease complicating 6259974272 6106 O99.891 O09.819 Z3A.23 [id number] Adriana Covarrubias MD [place] [address],[place] [address] 06/07/2021 12:25:22 06/07/2021 14:59:06 Elderly primigravida 45279311 O09.519 IVF - in-v itro fertilization 8057111659 2102 O09.819 Uterine fi broids affecting 40970607 D25.9 O41.8X99 Z3A.14 [id number] Adriana Covarrubias MD [facility] [address],[place] [address] 07/05/2021 10:13:21 07/05/2021 11:08:38 IVF - in-vitro fertilization 4979655402 2102 O09.819 O41.8X99 O99.891 U07.1 Z3A.27 [id number] Adriana Covarrubias MD [facility] [address],[place] [address] 07/05/2021 10:13:52 07/05/2021 12:31:38 IVF - in-vitro fertilization 8625896306 2102 O09.819 O41.8X99 O99.891 U07.1 Z3A.27 Elderly primigravida 293 35835 O09.519 Uterine fi broids affecting 67584561 D25.9 O41.8X99 Z3A.14 [id number] Torrie Mccartney [facility] [address],[place] [address] 07/19/2021 12:19:03 07/19/2021 14:09:58 Routine care 807969521 Z34.92 [id number] Adriana Covarrubias MD [facility] [address],[place] [address] 08/02/2021 09:23:59 08/02/2021 10:13:42 Pre-existing maternal disease complicating 4894267283 6106 O99.891 U07.1 Z3A.31 [id number] Adriana Covarrubias MD [facility] [address],[place] [address] 08/02/2021 09:24:25 08/02/2021 11:02:22 IVF - in-vitro fertilization 7364828973 2102 O09.819 O41.8X99 O99.891 U07.1 Z3A.27 Elderly primigravida 293 40677 O09.519 Uterine fi broids affecting 12629139 D25.9 O41.8X99 Z3A.14 [id number] Adriana Covarrubias MD [facility] [address],[place] [address] 08/16/2021 10:22:23 08/16/2021 11:09:46 Elderly primigravida 70342244 O09.519 Uterine fi broids affecting 86910313 D25.9 O41.8X99 Z3A.14 IVF - in-v itro fertilization 7582464549 2102 O09.819 O41.8X99 O99.891 U07.1 Z3A.27 [id number] Adriana Covarrubias MD [place] [address],[place] [address] 08/30/2021 11:29:18 08/30/2021 12:14:51 IVF - in-vitro fertilization 2367318124 2102 O09.819 O41.8X99 O99.891 U07.1 Z3A.35 [id number] Adriana Covarrubias MD [facility] [address],[place] [address] 08/30/2021 11:29:40 08/30/2021 12:45:27 Elderly primigravida 26647409 O09.519 Anxiety in 168 3356871 9109 F41.9 IVF - in-v itro fertilization 1735757079 2102 O09.819 O41.8X99 O99.891 U07.1 Z3A.35 Uterine fi broids affecting 82802771 D25.9 O41.8X99 Z3A.14 [id number] Adriana Covarrubias MD [facility] [address],[place] [address] 08/30/2021 11:30:21 08/30/2021 12:57:33 Elderly primigravida 16029185 O09.519 [id number] Adriana Covarrubias MD [facility] [address],[place] [address] 09/04/2021 09:40:31 09/04/2021 10:11:41 Elderly primigravida 53717352 O09.519 Anxiety in 271 1641859 9109 F41.9 IVF - in-v itro fertilization 4003902115 2102 O09.819 O41.8X99 O99.891 U07.1 Z3A.35 [id number] Adriana Covarrubias MD [facility] [address],[place] [address] 09/04/2021 09:41:13 09/04/2021 10:38:35 Advanced maternal age 858964787 O09.513 O09.813 U07.1 O34.13 Z3A.36 [id number] Adriana Covarrubias MD [facility] [address],[place] [address] 09/04/2021 09:41:30 09/04/2021 11:30:27 IVF - in-vitro fertilization 3923771619 2102 O09.819 O41.8X99 O99.891 U07.1 Z3A.35 [id number] Adriana Covarrubias MD [facility] [address],[place] [address] 09/13/2021 10:14:02 09/16/2021 16:11:42 Elderly primigravida 12360389 O09.519 IVF - in-v itro fertilization 3306507186 2102 O09.819 O41.8X99 O99.891 U07.1 Z3A.37 [id number] Adriana Covarrubias MD [facility] [address],[place] [address] 09/13/2021 10:14:24 09/16/2021 16:12:26 IVF - in-vitro fertilization 5958290150 2102 O09.819 O41.8X99 O99.891 U07.1 Z3A.35 [id number] MD Delfina [place] [address],[place] [address] 09/13/2021 10:15:09 09/13/2021 12:41:26 IVF - in-vitro fertilization 2078625104 2102 O09.819 O41.8X99 O99.891 U07.1 Z3A.37 [id number] MD Silvio [place] [address],[place] [address] 09/18/2021 09:34:14 09/18/2021 11:04:04 IVF - in-vitro fertilization 8183241514 2102 O09.819 O41.8X99 O99.891 U07.1 Z3A.37 Elderly primigravida 293 58899 O09.519 Candidiasis of vulva 108 5006 B37.3 [id number] Adriana Covarrubias MD [facility] [address],[place] [address] 09/18/2021 09:53:02 09/18/2021 11:52:24 IVF - in-vitro fertilization 9662192179 2102 O09.819 O41.8X99 O99.891 U07.1 Z3A.37 [id number] MD Delfina [place] [address],[place] [address] 09/18/2021 10:03:34 09/18/2021 11:21:13 IVF - in-vitro fertilization 0053642820 2102 O09.819 O41.8X99 O99.891 U07.1 Z3A.38 [id number] Adriana Covarrubias MD [facility] [address] [place] [address] 09/27/2021 09:57:34 09/27/2021 10:40:50 IVF - in-vitro fertilization 9797719274 2102 O09.819 O41.8X99 O99.891 U07.1 Z3A.38 [id number] Adriana Covarrubias MD [facility] [address],[place] [address] 09/27/2021 09:58:27 09/27/2021 11:51:43 Elderly primigravida 18744923 O09.519 IVF - in-v itro fertilization 6074527024 2102 O09.819 O41.8X99 O99.891 U07.1 Z3A.38 [id number] Adriana Covarrubias MD [facility] [address],[place] [address] 09/27/2021 09:58:58 09/27/2021 17:05:31 Pre-existing maternal disease complicating 5079322604 6106 O99.891 O09.819 O09.519 U07.1 Z3A.39 [id number] Adriana Covarrubias MD [facility] [address],[place] [address] 10/30/2021 12:28:37 10/30/2021 12:56:40 care 276121723 Z39.2 [id number] Adriana Covarrubias MD [facility] [address],[place] [address] 01/08/2022 12:28:24 01/08/2022 13:44:55 Gynecologic examination 16364032 Z01.419 Z11.51 Hypothyroidism 29591574 E03.9 [id number] Olivier Alas MD [facility] [address],[place] [address] 03/25/2023 09:43:28 03/25/2023 10:40:45 [id number] FELIZ PEÑALOZA MD [facility] [address],[place] [address] 03/25/2023 09:44:21 03/25/2023 11:19:03 test positive 522666020 Z32.01 1. Exam today within normal limits.2. Ultrasound today confirms GA and viability. EDC . GC/Clamydi a testing done: will f/u as indicated. 4. ACOG guidelines and plan of care for reviewed with patient. All questions answered.5 . Return to office at 12 weeks for new OB visit6. Will need new OB labs at next visit.7. Genetic screening: declines. Advanced m aternal age 040058767 O09.521 [id number] Olivier Alas MD [facility] [address],[place] [address] 04/22/2023 10:48:04 04/22/2023 11:48:46 screening 617574355 Z36.82 Z3A.12 [id number] Torrie Mccartney [facility] [address],[place] [address] 04/22/2023 10:50:35 04/22/2023 12:48:37 Gestation period, 12 weeks 48372485 Z3A.12 [id number] Torrie Mccartney [place] [address],[place] [address] 05/27/2023 09:26:24 05/27/2023 10:03:22 Routine care 646521140 Z34.92 [id number] Olivier Alas MD [facility] [address],[place] [address] 06/19/2023 13:52:33 06/19/2023 15:10:32 screening for malformation 248094219 Z36.3 Z3A.20 [id number] Torrie Mccartney [place] [address],[place] [address] 06/19/2023 13:52:56 06/19/2023 15:34:10 Routine care 660877681 Z34.92 [id number] Olivier Alas MD [facility] [address],[place] [address] 07/17/2023 14:48:29 07/17/2023 15:47:46 condition affecting obstetrical care of mother 057997186 O35.3XX0 O09.522 O43.112 O34.12 Z3A.24 [id number] Torrie Mccartney [facility] [address],[place] [address] 07/17/2023 14:49:02 07/17/2023 16:23:40 Influenza 2058186 J11.1 Routine an tenatal care 045856105 Z34.92 [id number] Olivier Alas MD [facility] [address],[place] [address] 08/12/2023 10:51:55 08/12/2023 11:42:22 Placenta circumvallata 7180723 O43.113 O35.3XX0 O09.523 O34.13 Z3A.28 [id number] Torrie Mccartney [facility] [address],[place] [address] 08/12/2023 10:52:27 08/12/2023 12:26:05 Routine care 924320072 Z34.92 [id number] [facility] [address],[place] [address] 08/26/2023 09:27:34 08/26/2023 11:01:29 Routine care 101578128 Z34.92 [id number] Olivier Alas MD [place] [address],[place] [address] 09/11/2023 10:53:54 09/11/2023 11:52:56 Placenta circumvallata 8825914 O43.113 O35.3XX0 O09.523 O34.13 Z3A.32 [id number] [facility] [address],[place] [address] 09/11/2023 10:54:48 09/11/2023 12:24:27 Routine care 332637994 Z34.92 [id number] [facility] [address],[place] [address] 09/23/2023 09:40:02 09/23/2023 10:38:02 Routine care 225531208 Z34.92 Pain of hip region 65647 002 M25.559 [id number] Olivier Alas MD [facility] [address],[place] [address] 10/07/2023 11:23:37 10/07/2023 12:13:41 condition affecting obstetrical care of mother 800315917 O35.3XX0 O09.523 O34.13 Z3A.36 MD Silvio [place] [address],[place] [address] 10/07/2023 11:24:06 10/07/2023 13:31:01 Advanced maternal age 607490621 O09.513 [facility] [address],[place] [address] 10/07/2023 11:24:43 10/07/2023 13:30:51 Routine care 670706487 Z34.92 Olivier Alas MD [facility] [address],[place] [address] 10/14/2023 14:26:00 10/14/2023 15:11:36 Advanced maternal age 942049155 O09.513 [facility] [address],[place] [address] 10/14/2023 14:26:38 10/14/2023 15:23:12 Routine care 477505995 Z34.92 [id number] MD Silvio [place] [address],[place] [address] 10/21/2023 10:52:53 10/21/2023 11:36:14 Multigravida of advanced maternal age 157026365 O09.523 Z3A.38 [id number] Olivier Alas MD [place] [address],[place] [address] 10/21/2023 10:53:32 10/21/2023 12:09:11 Advanced maternal age 188002544 O09.513 [id number] Torrie Mccartney [facility] [place] [address],[place] [address] 10/21/2023 10:54:07 10/21/2023 13:55:37 Routine care 454596132 Z34.92 [id number] Olivier Alas MD [place] [address],[place] [address] 10/28/2023 10:55:08 10/28/2023 11:42:59 Advanced maternal age 271817102 O09.513 Z86.16 E03.9 O36.8990 Z3A.39 FELIZ PEÑALOZA MD [place] [address],[place] [address] 10/28/2023 11:04:03 10/28/2023 12:08:24 Advanced maternal age 824442715 O09.521 Torrie Mccartney [facility] [address],[place] [address] 10/28/2023 11:04:24 10/28/2023 13:59:49 [id number] Torrie Mccartney [facility] [address],[place] [address] 12/09/2023 13:59:35 12/09/2023 14:44:40 care 696899819 Z39.2 pelvic floor PT as neededf/u wwe in 6 months [id number] Torrie Mccartney [facility] [address],[place] [address] 07/06/2024 10:56:39 07/06/2024 12:11:21 Vaginal irritation 988296720 N89.8 Gynecologi c examination 88985953 Z01.419 Health Concerns Section Related Observation LastModified by Organization Detai ls LastModified Time None Recorded Concern Status LastModified by Organization Details LastModified Time None Recorded Advance Directives Directive N: Payers Insurance Date Sequence Insurance Name Policy Number Policy Wang Covered Member ID Wang Member ID Guarantor Name 04/22/2021 1 [employer] [facility] [id number] Benjy Hanson [id number] Mere Hanson 03/11/2021 1 [place] [id number] Benjy Hanson [id number] Mere Hanson 07/06/2024 1 [facility] [id number] Benjy Hanson [id number] Mere Leivaede 04/24/2021 1 [facility] [id number] Benjy Haresharisalojustin [id number] Mere Hanson Notes Date Note Type Note Provider Name and Address Organization Details Recorded Time 4 text/html Generic HPI TemplateReported by Patient Torrie Mccartney CNM [address], [place], [address], [facility] 10/28/2023 13:55:56 4 text/html VisitReported by PatientHPIFor quality, patient reportsnsvd. For context, patient reportscomplications of : none,complications of labor: none, complications: none,feeding choice: breast,good support from partner/family, andresumed menstrual bleeding no. For associated symptoms, patient reportsno abnormal bleeding,no vaginal discharge,no pelvic pain,no constipation,no fecal incontinence,no dysuria,no urinary incontinence,no fever,no problems,no mastitis, andnormal mood. For contraception plan, patient reportsdeclines contraception.vaginal irritationROS as noted in the HPI Torrie Mccartney CNM [address], [place], [address], [facility] 12/09/2023 14:42:50 5 text/html Annual GYNReported by PatientHistoryFor history, (vaginal dryness, abd core weak, did 4 pt appt).Genitourinary symptomsFor menstrual cycle, patient reportsnormal menses. For urinary symptoms, patient reportsno hematuriaandno incontinence. For vulva, patient reportsno genital lesion. For vagina, patient reportsnormal vaginal discharge.Breast symptomsFor breast, patient reportsno breast pain,no breast lump, andno nipple discharge.Endocrine symptomsFor sexual complaints, patient reportsno sexual complaints,no pain during intercourse, andnormal libido. For menopausal symptoms, patient reportsno menopausal symptomsandnormal vaginal lubrication.Psychological symptomsFor psychological symptoms, patient reportsno depression,no anxiety, andno pmdd.Preventative measuresFor preventive measures, patient reportsencourage self breast examination,encourage regular exercise,encourage no tobacco use,encourage regular mammograms starting age 40, andneeds to schedule mammogram.breast feedingROS as noted in the HPI Torrie Mccartney, CNM [address], [place], [address], [facility] 07/06/2024 11:59:37 OBGyn Episode Ob Episode Information Episode Created Date Number of Fetuses Patient Bloodtype Patient rh Status Prepregnancy Weight lbs Domestic Partner Domestic Partner Phone Father Name Law Examiner Status 03/29/20 21 1 O Positive CLOSED Fetus Data First Name Last Name Admitted to NICU Weight (g) Sex Living Outcome Pediatric Complications Fetus ID Race Codes Race Delivery Type 2948.34 8 F true Full Term gastric aspirate 16ccs, cpap, delee suction catheter. see nursery note. [id number] Vaginal Delivery Problems Problem Notes Genetic carrier screen for p t and FOB in chart under medical record documentDunbar pt! Problem Name Start Date End Date Resolution Snomed Code Not e COVID-19 04/13/2021 697319501 ASA QD & serial growth Elderly primigravida 90247546 declines NIPT Scoliosis deformity of spine 602672720 anesthesia consult with prereg IVF - in-vitro fertilization 03/11/2021 [id number] echo WN L- / & testing at 36s Uterine fibroids affecting 03/11/2021 35000158 growth U Ss Hypothyroidism 24422929 borde rline - increased to 75mcg 08/19 repeat tsh at 37-38 wks!!! Jono Calculation Initial Jono Date Initial Exam Date Initial Exam Provider Initial Ultrasound Date Last Menstrual Period Date Ultra Sound Weeks Gestation 09/28/2021 03/29/2021 03/11/2021 11 Eighteen To Twenty Week Jono Update Ultra Sound Date Fundal Height At Umbil Quickening Date Ultra Sound Latest Weeks Gestation Final Jono Confirmed By Final Jono Confirmed Date Final Jono Date Ultra Sound Latest Days Gestation 0 [email or web address] 04/01/2021 09/29/19 22 0 Pre-kellee Flowsheet Flowsheet Date 03/29/2021 Monroy Score Blood Edema Fundus Height Fundus Units Glucose Ketones Leukocytes Nitrite Labor Signs Protein Cervic Dilation Cervic Effacement Cervic Station neg none none trace Type Weight in lbs Pre/Post Dialysis Refused Weight 169.438391564726 BP Diastolic BP Location Tested BP Systolic BP Type 77 120 Fetus Heart Rate Present A 155 Fetus Movement A No Comments Mere is a 40yo at 13.6 by IVF FET date who presents for care. She is aware of risks related to IVF and AMA, declines NIPT. nausea still there, but not bad enough to take zofran. Some REZA- tylenol helps. US today fibroid stable, DORIS resolved, normal NT. Labs and TSH today. Plan growth US for fibroid, echo for IVF. Has scoliosis- discussed anesthesia consult. Flowsheet Date 03/29/2021 Monroy Score Blood Edema Fundus Height Fundus Units Glucose Ketones Leukocytes Nitrite Labor Signs Protein Cervic Dilation Cervic Effacement Cervic Station Type Weight in lbs Pre/Post Dialysis Refused BP Diastolic BP Location Tested BP Systolic BP Type Fetus Heart Rate Present Fetus Movement Comments Flowsheet Date 04/24/2021 Monroy Score Blood Edema Fundus Height Fundus Units Glucose Ketones Leukocytes Nitrite Labor Signs Protein Cervic Dilation Cervic Effacement Cervic Station neg none none trace Type Weight in lbs Pre/Post Dialysis Refused Weight 174.09001678195 BP Diastolic BP Location Tested BP Systolic BP Type 77 120 Fetus Heart Rate Present A 150 Fetus Movement A No Comments Mere is very anxious and s tressed. Had COVID beg of month despite being vaccinated. Has not had booster yet, wants to do in 3rd tri. She is very worried about risks due to covid. Taking ASA. Will do growth US. Declines AFP. Has anatomy US scheduled, but will do a quick visit before then for reassurance. Plan echo for IVF . SUpport given. SHe declines medication for anxiety. Flowsheet Date 05/10/2021 Monroy Score Blood Edema Fundus Height Fundus Units Glucose Ketones Leukocytes Nitrite Labor Signs Protein Cervic Dilation Cervic Effacement Cervic Station neg trace trace Type Weight in lbs Pre/Post Dialysis Refused Weight 174.85151985131 BP Diastolic BP Location Tested BP Systolic BP Type 78 113 Fetus Heart Rate Present Fetus Movement A No Comments patient is having some cramp ing, headaches, some swelling at end of day, and nausea. reviewed precautions, anxiety controlled, has MFM appt on thursday, f/u 4 weeks ob Flowsheet Date 05/15/2021 Monroy Score Blood Edema Fundus Height Fundus Units Glucose Ketones Leukocytes Nitrite Labor Signs Protein Cervic Dilation Cervic Effacement Cervic Station Type Weight in lbs Pre/Post Dialysis Refused BP Diastolic BP Location Tested BP Systolic BP Type Fetus Heart Rate Present Fetus Movement Comments Flowsheet Date 05/15/2021 Monroy Score Blood Edema Fundus Height Fundus Units Glucose Ketones Leukocytes Nitrite Labor Signs Protein Cervic Dilation Cervic Effacement Cervic Station neg trace 23 none trace Type Weight in lbs Pre/Post Dialysis Refused Weight 175.064031355546 BP Diastolic BP Location Tested BP Systolic BP Type 77 117 Fetus Heart Rate Present A 150 Fetus Movement A No Comments Doing ok, bothered a lot by cramping/constipation (increasing OTCs) and tension HAs, but doesn't want to take anything. US today anatomy wnl except spine suboptimal. Will check lower spine with growth US in 4 weeks. Flowsheet Date 05/15/2021 Monroy Score Blood Edema Fundus Height Fundus Units Glucose Ketones Leukocytes Nitrite Labor Signs Protein Cervic Dilation Cervic Effacement Cervic Station neg none none trace Type Weight in lbs Pre/Post Dialysis Refused Weight 175.346227882894 BP Diastolic BP Location Tested BP Systolic BP Type 77 117 Fetus Heart Rate Present Fetus Movement A No Comments Flowsheet Date 06/07/2021 Monroy Score Blood Edema Fundus Height Fundus Units Glucose Ketones Leukocytes Nitrite Labor Signs Protein Cervic Dilation Cervic Effacement Cervic Station Type Weight in lbs Pre/Post Dialysis Refused BP Diastolic BP Location Tested BP Systolic BP Type Fetus Heart Rate Present Fetus Movement Comments Flowsheet Date 06/07/2021 Monroy Score Blood Edema Fundus Height Fundus Units Glucose Ketones Leukocytes Nitrite Labor Signs Protein Cervic Dilation Cervic Effacement Cervic Station neg trace none trace Type Weight in lbs Pre/Post Dialysis Refused Weight 180.800333301162 BP Diastolic BP Location Tested BP Systolic BP Type 76 118 Fetus Heart Rate Present A 145 Fetus Movement A Yes Comments Doing ok. Has had a couple e pisodes of SOB while standing, pulse up, O2 sat in upper 80s, but quickly resolved. Does not take breaks at work longer than 2 min to go to bathroom or eat lunch. She feels she is unable to do this. Encouraged to take at least 15min breaks 2x per day to put her feet up. Hydration, if episodes not resolving within a couple minutes, to go to ED. Has not heard re scheduling echo yet. Discussed and encouraged Tdap. Getting COVID booster soon. US today 44%, spine normal and complete. Has growth US scheduled at 28 and 32w. Flowsheet Date 07/05/2021 Monroy Score Blood Edema Fundus Height Fundus Units Glucose Ketones Leukocytes Nitrite Labor Signs Protein Cervic Dilation Cervic Effacement Cervic Station Type Weight in lbs Pre/Post Dialysis Refused BP Diastolic BP Location Tested BP Systolic BP Type Fetus Heart Rate Present Fetus Movement Comments Flowsheet Date 07/05/2021 Monroy Score Blood Edema Fundus Height Fundus Units Glucose Ketones Leukocytes Nitrite Labor Signs Protein Cervic Dilation Cervic Effacement Cervic Station neg none 27 none trace Type Weight in lbs Pre/Post Dialysis Refused Weight 181.961879459693 BP Diastolic BP Location Tested BP Systolic BP Type 73 113 Fetus Heart Rate Present A 145 Fetus Movement A Yes Comments Doing ok, just lots of disco mforts. Just got a support belt. GCT today. COVID booster done, doing Tdap in a couple weeks. epISODES of SOB much better and now rare. US today EFW 49%. echo was wnl. Flowsheet Date 07/19/2021 Monroy Score Blood Edema Fundus Height Fundus Units Glucose Ketones Leukocytes Nitrite Labor Signs Protein Cervic Dilation Cervic Effacement Cervic Station neg none 28 trace Type Weight in lbs Pre/Post Dialysis Refused Weight 182.829092839328 BP Diastolic BP Location Tested BP Systolic BP Type 79 123 Fetus Heart Rate Present A 145 Fetus Movement A Yes Comments PATIENT IS HAVING SOME PAIN AND NAUSEA. reviewed precautions, f/u 2 weeks, sister is ld nurse and plans on being in delivery. f/u 2 weeks Flowsheet Date 08/02/2021 Monroy Score Blood Edema Fundus Height Fundus Units Glucose Ketones Leukocytes Nitrite Labor Signs Protein Cervic Dilation Cervic Effacement Cervic Station Type Weight in lbs Pre/Post Dialysis Refused BP Diastolic BP Location Tested BP Systolic BP Type Fetus Heart Rate Present Fetus Movement Comments Flowsheet Date 08/02/2021 Monroy Score Blood Edema Fundus Height Fundus Units Glucose Ketones Leukocytes Nitrite Labor Signs Protein Cervic Dilation Cervic Effacement Cervic Station neg trace none trace Type Weight in lbs Pre/Post Dialysis Refused Weight 183.826229394742 BP Diastolic BP Location Tested BP Systolic BP Type 74 112 Fetus Heart Rate Present A 150 Fetus Movement A Yes Comments Doing well. US 36%, fibroids stable. TSH next visit. COmplains of one month of persistent LUQ pain that feels muscular and is worse with turning, coughing, sneezing. Agree muscular in origin. topical lidocaine, tylenol, offered flexeril and she declines. Precautions given. Flowsheet Date 08/16/2021 Monroy Score Blood Edema Fundus Height Fundus Units Glucose Ketones Leukocytes Nitrite Labor Signs Protein Cervic Dilation Cervic Effacement Cervic Station neg trace 33 none trace Type Weight in lbs Pre/Post Dialysis Refused Weight 186.306817189120 BP Diastolic BP Location Tested BP Systolic BP Type 80 122 Fetus Heart Rate Present A 140 Fetus Movement A Yes Comments Doing ok except left flank p ain still bothersome, declines flexeril or PT. Tdap done. TSH today. Will schedule ante testing. Flowsheet Date 08/30/2021 Monroy Score Blood Edema Fundus Height Fundus Units Glucose Ketones Leukocytes Nitrite Labor Signs Protein Cervic Dilation Cervic Effacement Cervic Station Type Weight in lbs Pre/Post Dialysis Refused BP Diastolic BP Location Tested BP Systolic BP Type Fetus Heart Rate Present Fetus Movement Comments Flowsheet Date 08/30/2021 Monroy Score Blood Edema Fundus Height Fundus Units Glucose Ketones Leukocytes Nitrite Labor Signs Protein Cervic Dilation Cervic Effacement Cervic Station neg trace 35 none trace 0cm 30% Type Weight in lbs Pre/Post Dialysis Refused Weight 186.696837203984 BP Diastolic BP Location Tested BP Systolic BP Type 83 131 Fetus Heart Rate Present Fetus Movement A Yes Comments Doing ok except left flank/r ibs still bothering her. Precautions given. BP obrderline will monitor. TSH next week. Growth 39%. Flowsheet Date 08/30/2021 Monroy Score Blood Edema Fundus Height Fundus Units Glucose Ketones Leukocytes Nitrite Labor Signs Protein Cervic Dilation Cervic Effacement Cervic Station Type Weight in lbs Pre/Post Dialysis Refused BP Diastolic BP Location Tested BP Systolic BP Type Fetus Heart Rate Present Fetus Movement Comments Flowsheet Date 09/04/2021 Monroy Score Blood Edema Fundus Height Fundus Units Glucose Ketones Leukocytes Nitrite Labor Signs Protein Cervic Dilation Cervic Effacement Cervic Station neg trace none trace Type Weight in lbs Pre/Post Dialysis Refused Weight 186.147085958087 BP Diastolic BP Location Tested BP Systolic BP Type 77 115 Fetus Heart Rate Present A 140 Fetus Movement A Yes Comments Doing ok. GBS neg. TSH next week. Contractions a lot when on feet. Precautions given. Flowsheet Date 09/04/2021 Monroy Score Blood Edema Fundus Height Fundus Units Glucose Ketones Leukocytes Nitrite Labor Signs Protein Cervic Dilation Cervic Effacement Cervic Station Type Weight in lbs Pre/Post Dialysis Refused BP Diastolic BP Location Tested BP Systolic BP Type Fetus Heart Rate Present Fetus Movement Comments Flowsheet Date 09/04/2021 Monroy Score Blood Edema Fundus Height Fundus Units Glucose Ketones Leukocytes Nitrite Labor Signs Protein Cervic Dilation Cervic Effacement Cervic Station Type Weight in lbs Pre/Post Dialysis Refused BP Diastolic BP Location Tested BP Systolic BP Type Fetus Heart Rate Present Fetus Movement Comments Flowsheet Date 09/13/2021 Monroy Score Blood Edema Fundus Height Fundus Units Glucose Ketones Leukocytes Nitrite Labor Signs Protein Cervic Dilation Cervic Effacement Cervic Station neg trace none trace Type Weight in lbs Pre/Post Dialysis Refused Weight 187.835797044577 BP Diastolic BP Location Tested BP Systolic BP Type 77 123 Fetus Heart Rate Present Fetus Movement A Yes Comments Flowsheet Date 09/13/2021 Monroy Score Blood Edema Fundus Height Fundus Units Glucose Ketones Leukocytes Nitrite Labor Signs Protein Cervic Dilation Cervic Effacement Cervic Station Type Weight in lbs Pre/Post Dialysis Refused BP Diastolic BP Location Tested BP Systolic BP Type Fetus Heart Rate Present Fetus Movement Comments Flowsheet Date 09/13/2021 Monroy Score Blood Edema Fundus Height Fundus Units Glucose Ketones Leukocytes Nitrite Labor Signs Protein Cervic Dilation Cervic Effacement Cervic Station Type Weight in lbs Pre/Post Dialysis Refused BP Diastolic BP Location Tested BP Systolic BP Type Fetus Heart Rate Present A 140 Fetus Movement A Yes Comments Doing the same. NO signs of labor except ctx while walking only. TSH today. NST reactive. FU weekly. Flowsheet Date 09/18/2021 Monroy Score Blood Edema Fundus Height Fundus Units Glucose Ketones Leukocytes Nitrite Labor Signs Protein Cervic Dilation Cervic Effacement Cervic Station Type Weight in lbs Pre/Post Dialysis Refused BP Diastolic BP Location Tested BP Systolic BP Type Fetus Heart Rate Present Fetus Movement Comments Flowsheet Date 09/18/2021 Monroy Score Blood Edema Fundus Height Fundus Units Glucose Ketones Leukocytes Nitrite Labor Signs Protein Cervic Dilation Cervic Effacement Cervic Station neg trace 34 none trace 1cm 20% -3 Type Weight in lbs Pre/Post Dialysis Refused Weight 188.607263074281 BP Diastolic BP Location Tested BP Systolic BP Type 81 122 Fetus Heart Rate Present A 140 Fetus Movement A Yes Comments NST reactive. Doing well. CO ntractions, but not regular. Finishing work this week. Sensitive vulva- appears luis- diflucan. Will schedule IOL between 40 and 41 weeks- she prefers closer to 41w if possible. Flowsheet Date 09/18/2021 Monroy Score Blood Edema Fundus Height Fundus Units Glucose Ketones Leukocytes Nitrite Labor Signs Protein Cervic Dilation Cervic Effacement Cervic Station Type Weight in lbs Pre/Post Dialysis Refused BP Diastolic BP Location Tested BP Systolic BP Type Fetus Heart Rate Present Fetus Movement Comments Flowsheet Date 09/27/2021 Monroy Score Blood Edema Fundus Height Fundus Units Glucose Ketones Leukocytes Nitrite Labor Signs Protein Cervic Dilation Cervic Effacement Cervic Station Type Weight in lbs Pre/Post Dialysis Refused BP Diastolic BP Location Tested BP Systolic BP Type Fetus Heart Rate Present Fetus Movement Comments Flowsheet Date 09/27/2021 Monroy Score Blood Edema Fundus Height Fundus Units Glucose Ketones Leukocytes Nitrite Labor Signs Protein Cervic Dilation Cervic Effacement Cervic Station neg none none trace Type Weight in lbs Pre/Post Dialysis Refused Weight 186.989076858288 BP Diastolic BP Location Tested BP Systolic BP Type 83 119 Fetus Heart Rate Present Fetus Movement A Yes Comments Flowsheet Date 09/27/2021 Monroy Score Blood Edema Fundus Height Fundus Units Glucose Ketones Leukocytes Nitrite Labor Signs Protein Cervic Dilation Cervic Effacement Cervic Station 0cm 30% -2 Type Weight in lbs Pre/Post Dialysis Refused BP Diastolic BP Location Tested BP Systolic BP Type Fetus Heart Rate Present A 140 Fetus Movement A Yes Comments Having a rough morning becau se did castor oil last night. Really trying to avoid induction. Cervix 0.5cm but low. IOL thursday night. Flowsheet Date 10/30/2021 Monroy Score Blood Edema Fundus Height Fundus Units Glucose Ketones Leukocytes Nitrite Labor Signs Protein Cervic Dilation Cervic Effacement Cervic Station Type Weight in lbs Pre/Post Dialysis Refused Weight 169.789110333322 BP Diastolic BP Location Tested BP Systolic BP Type 73 113 Fetus Heart Rate Present Fetus Movement Comments Menstrual History Last Menstrual Date Menses Monthly On Bcp Conception Prior Menses Frequency Hcg Plus Date Menarche Onset Age Genetic Screening And Infection History Question Response Note Mental Retardation/Autism false Patient's Age Will Be 35 Years Or Older At Estim ated Date of Delivery true Thalassemia (Bulgarian, Frisian, Mediterranean, Or Background): MCV < 80 false Neural Tube Defect (Meningomyelocele, Spina Bifi da, Or Anencephaly) false Congenital Heart Defect false Down Syndrome false Jeremias-Sachs (eg, Bahai, Cajun, Bangladeshi-Swiss) f alse Marcia Disease false Sickle Cell Disease Or Trait () false Hemophilia Or Other Blood Disorders false Muscular Dystrophy false Cystic Fibrosis false [place] false Intellectual Disability/Autism false If Yes, Was Person Tested For Fragile X? false Other Inherited Genetic Or Chromosomal Disorder false Maternal Metabolic Disorder (eg, Type 1 Diabetes , PKU) false Patient Or Baby's Father Had A Child With Defects Not Listed Above false Recurrent Loss, Or A Stillbirth false Medications (including Suppl ements, Vitamins, Herbs, OTC Drugs), Illicit/Recreational Drugs, Alcohol true If Yes, Agent(s) And Strength/Dosage false Any Other Genetic History false Live With Someone With TB Or Exposed To TB false Patient Or Partner Has History Of Genital Herpes false Rash Or Viral Illness Since Last Menstrual Perio d false History Of STD, Gonorrhea, Chlamydia, HPV, Syphi lis false Other Infection History false History of HIV false History of Hepatitis false Prior GBS-infected child false Hemoglobinopathy Or Carrier false Other Structural Defect false Recent Travel History Outside of Country false Delivery Information Delivery Date Delivery Type Labor Anesthesia Weeks Gestation Incision Type Labor Labor Length Hrs Delivered By Post Complications Tubal Sterilization Discharge Date Comments 2 Induce d Regional-Ep idural 40.4 false Adriana Covarrubias MD AMA Discharge Information Feeding Method Contraceptive Method Maternal HG B and HCT Levels Ob Episode Information Episode Created Date Number of Fetuses Patient Bloodtype Patient rh Status Prepregnancy Weight lbs Domestic Partner Domestic Partner Phone Father Name Law Examiner Status 03/11/20 21 1 CLOSED Fetus Data First Name Last Name Admitted to NICU Weight (g) Sex Living Outcome Pediatric Complications Fetus ID Race Codes Race Delivery Type , Spontane ous [id number] Jono Calculation Initial Jono Date Initial Exam Date Initial Exam Provider Initial Ultrasound Date Last Menstrual Period Date Ultra Sound Weeks Gestation 0 Eighteen To Twenty Week Jono Update Ultra Sound Date Fundal Height At Umbil Quickening Date Ultra Sound Latest Weeks Gestation Final Jono Confirmed By Final Jono Confirmed Date Final Jono Date Ultra Sound Latest Days Gestation 0 0 Menstrual History Last Menstrual Date Menses Monthly On Bcp Conception Prior Menses Frequency Hcg Plus Date Menarche Onset Age Delivery Information Delivery Date Delivery Type Labor Anesthesia Weeks Gestation Incision Type Labor Labor Length Hrs Delivered By Post Complications Tubal Sterilization Discharge Date Comments 0 Discharge Information Feeding Method Contraceptive Method Maternal HG B and HCT Levels Ob Episode Information Episode Created Date Number of Fetuses Patient Bloodtype Patient rh Status Prepregnancy Weight lbs Domestic Partner Domestic Partner Phone Father Name Law Examiner Status 04/22/19 24 1 O Positive 167 benjy jimenez de CLOSED Fetus Data First Name Last Name Admitted to NICU Weight (g) Sex Living Outcome Pediatric Complications Fetus ID Race Codes Race Delivery Type 2891.64 9 F true Full Term [id number] Vaginal Delivery Problems Problem Notes last IVF Problem Name Start Date End Date Resolution Snomed Code Not e Small for gestational age fetus [id number] [facility] 10/14/23 0730 U/S COVID-19 [id number] bASA , ser ial growth Hypothyroidism 01/08/2022 [id number] levo thyroxine 75mcg Advanced maternal age [id number] bASA, testing 36 weeks 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 Jono Calculation Initial Jono Date Initial Exam Date Initial Exam Provider Initial Ultrasound Date Last Menstrual Period Date Ultra Sound Weeks Gestation 11/03/2022 03/25/2023 03/25/2023 01/28/2023 8 Eighteen To Twenty Week Jono Update Ultra Sound Date Fundal Height At Umbil Quickening Date Ultra Sound Latest Weeks Gestation Final Jono Confirmed By Final Jono Confirmed Date Final Jono Date Ultra Sound Latest Days Gestation 0 04/22/2023 11/04/19 24 0 Pre- Flowsheet Flowsheet Date 04/22/2023 Monroy Score Blood Edema Fundus Height Fundus Units Glucose Ketones Leukocytes Nitrite Labor Signs Protein Cervic Dilation Cervic Effacement Cervic Station neg none none trace Type Weight in lbs Pre/Post Dialysis Refused Weight 167.055739899727 BP Diastolic BP Location Tested BP Systolic BP Type 81 119 Fetus Heart Rate Present Fetus Movement A No Comments patient states that is havin g some nausea. first IVF, discussed AMA, testing, education and precautions reviewedUS reviewed Flowsheet Date 05/27/2023 Monroy Score Blood Edema Fundus Height Fundus Units Glucose Ketones Leukocytes Nitrite Labor Signs Protein Cervic Dilation Cervic Effacement Cervic Station neg none none trace Type Weight in lbs Pre/Post Dialysis Refused Weight 171.574173791891 BP Diastolic BP Location Tested BP Systolic BP Type 73 118 Fetus Heart Rate Present A 146 Present Fetus Movement A Yes Comments patient is having cramping a nd heartburn. wondering about echo, not rec with covid, but may choose to, will review at anatomy, feeling better, covid last week, tired today, has been on ASA, precautions and education done Flowsheet Date 06/19/2023 Monroy Score Blood Edema Fundus Height Fundus Units Glucose Ketones Leukocytes Nitrite Labor Signs Protein Cervic Dilation Cervic Effacement Cervic Station Type Weight in lbs Pre/Post Dialysis Refused BP Diastolic BP Location Tested BP Systolic BP Type Fetus Heart Rate Present Fetus Movement Comments Flowsheet Date 06/19/2023 Monroy Score Blood Edema Fundus Height Fundus Units Glucose Ketones Leukocytes Nitrite Labor Signs Protein Cervic Dilation Cervic Effacement Cervic Station Type Weight in lbs Pre/Post Dialysis Refused BP Diastolic BP Location Tested BP Systolic BP Type Fetus Heart Rate Present Fetus Movement Comments anatomy complete, efw 38%, r pt tsh 28 weeks, having pelvic pain, can refer to pelvic floor PT if needed, continue ice, f/u 4 weeks with growth Flowsheet Date 07/17/2023 Monroy Score Blood Edema Fundus Height Fundus Units Glucose Ketones Leukocytes Nitrite Labor Signs Protein Cervic Dilation Cervic Effacement Cervic Station Type Weight in lbs Pre/Post Dialysis Refused BP Diastolic BP Location Tested BP Systolic BP Type Fetus Heart Rate Present Fetus Movement Comments Flowsheet Date 07/17/2023 Monroy Score Blood Edema Fundus Height Fundus Units Glucose Ketones Leukocytes Nitrite Labor Signs Protein Cervic Dilation Cervic Effacement Cervic Station neg none none trace Type Weight in lbs Pre/Post Dialysis Refused Weight 177.565870298093 BP Diastolic BP Location Tested BP Systolic BP Type 74 117 Fetus Heart Rate Present Fetus Movement A Yes Comments Patient is having some nause a. discuss testing next visit, flu A, still having sxs, cough, spoke with dr. alas and will send out medrol dose pack, pt to call if sxs worsen, ok to start wearing maternity support belt, reviewed US, circumvallate placenta, fibroids stable, f/u 4 weeks with gct precautions and education Flowsheet Date 08/12/2023 Monroy Score Blood Edema Fundus Height Fundus Units Glucose Ketones Leukocytes Nitrite Labor Signs Protein Cervic Dilation Cervic Effacement Cervic Station Type Weight in lbs Pre/Post Dialysis Refused BP Diastolic BP Location Tested BP Systolic BP Type Fetus Heart Rate Present Fetus Movement Comments Flowsheet Date 08/12/2023 Monroy Score Blood Edema Fundus Height Fundus Units Glucose Ketones Leukocytes Nitrite Labor Signs Protein Cervic Dilation Cervic Effacement Cervic Station Type Weight in lbs Pre/Post Dialysis Refused Weight 182.418236675187 BP Diastolic BP Location Tested BP Systolic BP Type 71 117 Fetus Heart Rate Present Fetus Movement Comments efw 25 % FL 7 % will await thalia gonzales review but scheduled for rpt in 4 weeksstill battling flu sxs, pain with sleepingfibroids stable, breech, education and precautions Flowsheet Date 08/26/2023 Monroy Score Blood Edema Fundus Height Fundus Units Glucose Ketones Leukocytes Nitrite Labor Signs Protein Cervic Dilation Cervic Effacement Cervic Station neg none 29 none trace Type Weight in lbs Pre/Post Dialysis Refused Weight 184.093570836689 BP Diastolic BP Location Tested BP Systolic BP Type 78 114 Fetus Heart Rate Present A 121 Present Fetus Movement A Yes Comments Patient states that had bloo d work done by pcp and was low on calcium. Patient is having pain and some contractions. ok to increase dietary calcium, still having sciatica pain, ok to refer to PT if pt desires, plan testing Flowsheet Date 09/11/2023 Monroy Score Blood Edema Fundus Height Fundus Units Glucose Ketones Leukocytes Nitrite Labor Signs Protein Cervic Dilation Cervic Effacement Cervic Station Type Weight in lbs Pre/Post Dialysis Refused BP Diastolic BP Location Tested BP Systolic BP Type Fetus Heart Rate Present Fetus Movement Comments Flowsheet Date 09/11/2023 Monroy Score Blood Edema Fundus Height Fundus Units Glucose Ketones Leukocytes Nitrite Labor Signs Protein Cervic Dilation Cervic Effacement Cervic Station none Type Weight in lbs Pre/Post Dialysis Refused Weight 186.493751676135 BP Diastolic BP Location Tested BP Systolic BP Type 72 110 Fetus Heart Rate Present Fetus Movement A Yes Comments Patient state that having so me pain, pressure, contraction, discharge, and had blood in stool 1 time yesterday. Hip pain bothersome, ok for tucks, reviewed precautions and education, ok for tdap f/u 2 weeks efw 15% Flowsheet Date 09/23/2023 Monroy Score Blood Edema Fundus Height Fundus Units Glucose Ketones Leukocytes Nitrite Labor Signs Protein Cervic Dilation Cervic Effacement Cervic Station trace 33 Type Weight in lbs Pre/Post Dialysis Refused Weight 187.772018007496 BP Diastolic BP Location Tested BP Systolic BP Type 70 118 Fetus Heart Rate Present A 145 Present Fetus Movement A Yes Comments Patient is having some pain, not sleeping , contraction, add some swelling. plan rx for flexeril, precautions reviewed, remind to call for preadmit discussed rec for IOL at 40 weeks for AMA, pt declined at this time, f/u 2 weeks plan gbs Flowsheet Date 10/07/2023 [place] Score Blood Edema Fundus Height Fundus Units Glucose Ketones Leukocytes Nitrite Labor Signs Protein Cervic Dilation Cervic Effacement Cervic Station Type Weight in lbs Pre/Post Dialysis Refused BP Diastolic BP Location Tested BP Systolic BP Type Fetus Heart Rate Present Fetus Movement Comments Flowsheet Date 10/07/2023 Monroy Score Blood Edema Fundus Height Fundus Units Glucose Ketones Leukocytes Nitrite Labor Signs Protein Cervic Dilation Cervic Effacement Cervic Station Type Weight in lbs Pre/Post Dialysis Refused BP Diastolic BP Location Tested BP Systolic BP Type Fetus Heart Rate Present Fetus Movement Comments Flowsheet Date 10/07/2023 Monroy Score Blood Edema Fundus Height Fundus Units Glucose Ketones Leukocytes Nitrite Labor Signs Protein Cervic Dilation Cervic Effacement Cervic Station trace Type Weight in lbs Pre/Post Dialysis Refused Weight 189.687029944567 BP Diastolic BP Location Tested BP Systolic BP Type 77 118 Fetus Heart Rate Present Fetus Movement A Yes Comments Patient i shaving some hip p ain, contraction, discharge and swelling. efw 12%, FL<1%, HC 7% plan MFM US. level 2, GBS collected, precautions and education f/u one week Flowsheet Date 10/14/2023 [place] Score Blood Edema Fundus Height Fundus Units Glucose Ketones Leukocytes Nitrite Labor Signs Protein Cervic Dilation Cervic Effacement Cervic Station Type Weight in lbs Pre/Post Dialysis Refused BP Diastolic BP Location Tested BP Systolic BP Type Fetus Heart Rate Present Fetus Movement Comments Flowsheet Date 10/14/2023 [place]roy Score Blood Edema Fundus Height Fundus Units Glucose Ketones Leukocytes Nitrite Labor Signs Protein Cervic Dilation Cervic Effacement Cervic Station Type Weight in lbs Pre/Post Dialysis Refused Weight 191.669911389896 BP Diastolic BP Location Tested BP Systolic BP Type 80 125 Fetus Heart Rate Present Fetus Movement Comments reviewed MFM US, rec 39-40 w [place] IOL, doing well. +FM, seeing chiropractor, has abd taped precautions and education Flowsheet Date 10/21/2023 [place] Score Blood Edema Fundus Height Fundus Units Glucose Ketones Leukocytes Nitrite Labor Signs Protein Cervic Dilation Cervic Effacement Cervic Station Type Weight in lbs Pre/Post Dialysis Refused BP Diastolic BP Location Tested BP Systolic BP Type Fetus Heart Rate Present Fetus Movement Comments Flowsheet Date 10/21/2023 [place] Score Blood Edema Fundus Height Fundus Units Glucose Ketones Leukocytes Nitrite Labor Signs Protein Cervic Dilation Cervic Effacement Cervic Station Type Weight in lbs Pre/Post Dialysis Refused BP Diastolic BP Location Tested BP Systolic BP Type Fetus Heart Rate Present Fetus Movement Comments Flowsheet Date 10/21/2023 [place] Score Blood Edema Fundus Height Fundus Units Glucose Ketones Leukocytes Nitrite Labor Signs Protein Cervic Dilation Cervic Effacement Cervic Station trace Type Weight in lbs Pre/Post Dialysis Refused Weight 188.388071844313 BP Diastolic BP Location Tested BP Systolic BP Type 77 121 Fetus Heart Rate Present Fetus Movement A Yes Comments Patient is having some breas t and back pain, contraction and swelling. bpp 8/8 , +FM, hip pain, will plan IOL on 11/02 if undelivered by then. Precautions and education reviewed f/u one week Flowsheet Date 10/28/2023 [place]roy Score Blood Edema Fundus Height Fundus Units Glucose Ketones Leukocytes Nitrite Labor Signs Protein Cervic Dilation Cervic Effacement Cervic Station Type Weight in lbs Pre/Post Dialysis Refused BP Diastolic BP Location Tested BP Systolic BP Type Fetus Heart Rate Present Fetus Movement Comments Flowsheet Date 10/28/2023 [place] Score Blood Edema Fundus Height Fundus Units Glucose Ketones Leukocytes Nitrite Labor Signs Protein Cervic Dilation Cervic Effacement Cervic Station Type Weight in lbs Pre/Post Dialysis Refused BP Diastolic BP Location Tested BP Systolic BP Type Fetus Heart Rate Present Fetus Movement Comments Flowsheet Date 10/28/2023 [place]roy Score Blood Edema Fundus Height Fundus Units Glucose Ketones Leukocytes Nitrite Labor Signs Protein Cervic Dilation Cervic Effacement Cervic Station none Type Weight in lbs Pre/Post Dialysis Refused Weight 189.167919196984 BP Diastolic BP Location Tested BP Systolic BP Type 74 116 Fetus Heart Rate Present Fetus Movement A Yes Comments Patient is having some back pain and contractions. discussed MFM and dr. peñaloza rec to deliver prior to 40 weeks due to SGA, discussed risk, offered induction earlier, at this time pt declines, discussed movement, bpp 01/20, membrane sweep, precautions and education Menstrual History Last Menstrual Date Menses Monthly On Bcp Conception Prior Menses Frequency Hcg Plus Date Menarche Onset Age 1001/28/2023 Genetic Screening And Infection History Question Response Note Mental Retardation/Autism false Patient's Age Will Be 35 Yea rs Or Older At Estimated Date of Delivery true Thalassemia (Bulgarian, Frisian, Mediterranean, Or Background): MCV < 80 false Neural Tube Defect (Meningom yelocele, Spina Bifida, Or Anencephaly) false Congenital Heart Defect false Down Syndrome false Jeremias-Sachs (eg, Bahai, Cajun, Bangladeshi-Swiss) f alse Marcia Disease false Sickle Cell Disease Or Trait () false Hemophilia Or Other Blood Disorders false Muscular Dystrophy false Cystic Fibrosis false Deedee's Chorea false Intellectual Disability/Autism false If Yes, Was Person Tested For Fragile X? false Other Inherited Genetic Or Chromosomal Disorder false Maternal Metabolic Disorder (eg, Type 1 Diabetes, PKU) false Patient Or Baby's Father Had A Child With Defects Not Listed Above false Recurrent Loss, Or A Stillbirth false Medications (including Suppl ements, Vitamins, Herbs, OTC Drugs), Illicit/Recreational Drugs, Alcohol true pnv, rec asa, levothyroxine If Yes, Agent(s) And Strength/Dosage false Any Other Genetic History false Live With Someone With TB Or Exposed To TB false Patient Or Partner Has History Of Genital Herpes false Rash Or Viral Illness Since Last Menstrual Period false History Of STD, Gonorrhea, C hlamydia, HPV, Syphilis false Other Infection History false History of HIV false History of Hepatitis false Prior GBS-infected child false Hemoglobinopathy Or Carrier false Other Structural Defect false Recent Travel History Outside of Country false Delivery Information Delivery Date Delivery Type Labor Anesthesia Weeks Gestation Incision Type Labor Labor Length Hrs Delivered By Post Complications Tubal Sterilization Discharge Date Comments 4 Induce d [facility]-Ep idural 39.5 false Pring Advanced maternal age ,C OVID-19,H ypothyroi dism,Plac enta circumval kyrie,Smal l for gestation al age fetus Discharge Information Feeding Method Contraceptive Method Maternal HG B and HCT Levels
== END 2024-11-04 09:57 | disposition home or self-care (01) ==
LOC: ANHAUDIO 09:56
PROVIDERS: PCP Internal Medicine; Visit Provider Otolaryngology
DX: H90.6 Mixed conductive and sensorineural hearing loss, bilateral (principal); H69.90 Unspecified Eustachian tube disorder, unspecified ear; J01.01 Acute recurrent maxillary sinusitis
CPT/HCPCS: 92557; 92567

== ENCOUNTER 2024-12-07 12:49 | Outpatient (CLI) | payer OTHER, SELFPAY ==
--- NOTE | ~2024-12-07 | CT_ITS ---
EXAMINATION: CT sinus wo con DATE: 12/07/2024 13:11 INDICATION: Acute recurrent maxillary sinusitis TECHNIQUE: Computed tomography (CT) of the paranasal sinuses was performed without intravenous contrast. The dose-length product was 287.97 mGy-cm. Automated exposure control and iterative reconstruction technique were employed. COMPARISON: None FINDINGS: Mild mucosal thickening left maxillary antrum. Rightward nasal septal deviation. Ostiomeatal units are patent. No mucoperiosteal reaction. Remainder of the sinuses are pneumatized. Mastoids are unremarkable. IMPRESSION: 1. Mild left maxillary sinus disease. Reviewed, dictated and finalized at location O.
== END 2024-12-07 12:50 | disposition home or self-care (01) ==
LOC: MICIMG 12:51
PROVIDERS: PCP Internal Medicine; Visit Provider Otolaryngology
DX: J01.01 Acute recurrent maxillary sinusitis (principal); H69.90 Unspecified Eustachian tube disorder, unspecified ear; H90.6 Mixed conductive and sensorineural hearing loss, bilateral
CPT/HCPCS: 70486

== ENCOUNTER 2025-02-08 08:34 | Outpatient (CLI) | payer OTHER, SELFPAY ==
--- NOTE | ~2025-02-08 | MR_ITS ---
EXAMINATION: MR foot LT wo con DATE: 02/08/2025 09:08 INDICATION: Spontaneous rupture flexor tendons with pain at the plantar aspect of the left forefoot. TECHNIQUE: Magnetic resonance imaging (MRI) of the left fore/mid foot was performed without intravenous contrast. Sequences included sagittal T1-weighted FSE, sagittal fluid sensitive FSE STIR, coronal PD-weighted FS FSE, coronal T1- weighted FSE, axial PD-weighted FS FSE, and axial PD-weighted FSE. A rebecca was placed over the site of pain positioned along the plantar forefoot between the heads of the first and second metatarsals. COMPARISON: None FINDINGS: Bone alignment is normal. Normal bone marrow signal throughout with no fracture or pathologic marrow replacing process. Joint spaces are normal physiologic amount of fluid in the joint spaces. No erosions to suggest and inflammatory arthritis. Mild increased fluid in the intermetatarsal bursa between the heads of the first and second metatarsal which measures 10 x 4 x 4 mm consistent with mild bursitis. The Lisfranc ligament complex and the collateral ligament complex at the metatarsophalangeal and interphalangeal joints are normal. Visualized portion of the flexor and extensor tendons are normal. Intrinsic musculature of the foot is unremarkable. No abnormal masses identified. IMPRESSION: 1. Mild intermetatarsal bursitis between the heads of the first and second metatarsals. Otherwise unremarkable MRI of the left mid and forefoot. Reviewed, dictated and finalized at location A. IMPRESSION: 1. Mild intermetatarsal bursitis between the heads of the first and second meta tarsals. Otherwise unremarkable MRI of the left mid and forefoot.
== END 2025-02-08 08:35 | disposition home or self-care (01) ==
LOC: MICIMG 08:35
PROVIDERS: PCP Internal Medicine; Visit Provider Podiatrist Foot & Ankle Surgery
DX: M66.372 Spontaneous rupture of flexor tendons, left ankle and foot (principal); M77.52 Other enthesopathy of left foot and ankle
CPT/HCPCS: 73718

== ENCOUNTER 2025-02-15 11:24 | Outpatient (CLI) | payer OTHER, SELFPAY ==
--- NOTE | ~2025-02-15 | MM_ITS ---
EXAMINATION: MM screening jose BI w emeka HISTORY: Screening TECHNIQUE: Craniocaudal and mediolateral oblique 3-D tomosynthesis images were obtained and synthetic 2-D images were generated. CAD analysis was submitted and interpreted. COMPARISON: 12/16/2013 BREAST PARENCHYMAL COMPOSITION: There are scattered areas of fibroglandular density. FINDINGS: There is no evidence of suspicious mass, calcification, or architectural distortion to suggest malignancy in either breast. IMPRESSION: 1. No mammographic evidence of malignancy. 2. Recommend routine screening mammography in one year. BI-RADS Category 1: Negative Reviewed, dictated and finalized at location A. [facility] [employer]
== END 2025-02-15 11:25 | disposition home or self-care (01) ==
LOC: MICIMG 11:25
PROVIDERS: PCP Internal Medicine; Visit Provider Advanced Practice Midwife
DX: Z12.31 Encounter for screening mammogram for malignant neoplasm of breast (principal)
CPT/HCPCS: 77063; 77067